=== PATIENT | female | born 1995 | race Caucasian/White ===

== ENCOUNTER 2024-12-16 14:01 | Emergency (ER) | payer SELFPAY ==
[2024-12-16 14:50] VITALS: BP 138/63; BP 172/92; PULSE 120; PULSE 78; RESP 18; TEMP 37.2; O2SAT 97; BMI 23.3
[2024-12-16 14:55] VITALS: BP 138/63; PULSE 78; RESP 18; TEMP 37.2; O2SAT 97
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
[2024-12-16] MEDS: LORazepam 1 MG TABLET 2 MG PO (17:13)
[2024-12-16 17:24] LABS: MANUAL DIFF FLAG NO
[2024-12-16 17:32] LABS: Basophils Absolute Auto 0.1 X10*3/uL (0.0-0.2); Basophils Percent Auto 0.7 % (0-2); Eosinophils Absolute Auto 0.2 X10*3/uL (0.0-0.4); Eosinophils Percent Auto 2.7 % (0-4); Hemoglobin 15.2 g/dl (12.0-16.0); Imm Gran Abs Auto 0.03 X10*3/uL (0.00-0.03); Imm Gran Pct Auto 0.4 % (0.0-0.4); Lymphocytes Absolute Auto 1.1 X10*3/uL (1.2-4.9); Mean Corpuscular HGB Conc 33.8 g/dl (31.0-35.0); Mean Corpuscular Hemoglobin 30.9 pg (27.0-33.0); Mean Corpuscular Volume 91.5 fL (80.0-98.0); Mean Platelet Volume 9.9 fL (9.4-12.3); Monocytes Absolute Auto 0.6 X10*3/uL (0.1-1.2); Monocytes Percent Auto 7.6 % (2-11); Neutrophils Absolute Auto 6.2 x10*3/uL (2.0-8.3); Neutrophils Percent Auto 75.6 % (45-73); Platelet Count 243 X10*3/uL (160-400); Red Blood Count 4.92 X10*6/uL (4.20-5.50); Red Cell Distribution Width 13.1 % (11.0-16.0); White Blood Count 8.2 X10*3/uL (4.8-10.8)
[2024-12-16 17:49] LABS: Alanine Aminotransferase 30 U/L (0-31); Albumin Level 4.5 g/dL (3.5-5.0); Alkaline Phosphatase 75 U/L (39-117); Anion Gap 13 (12-20); Aspartate Amino Transferase 35 U/L (5-31); Bilirubin Total 0.5 mg/dL (0.0-1.0); Blood Urea Nitrogen 12 mg/dL (9-16); Calcium 9.7 mg/dL (8.4-10.2); Carbon Dioxide 26 mmol/L (22-29); Chloride 104 mmol/L (96-108); Estimated Glomerular Filt Rate > 60; Ethanol < 10 mg/dL; Glucose Random 130 mg/dL (60-115); HCG Quantitative < 2 mIU/mL; Potassium 3.4 mmol/L (3.3-5.1); Sodium 140 mmol/L (135-145); Total Protein 7.6 g/dL (6.5-8.0)
[2024-12-16 17:58] LABS: UPreg QC Valid YES; Urine Pregnancy NEGATIVE (NEGATIVE)
--- OUTSIDE RECORDS SUMMARY | 2024-12-16 18:08 | XMS_ITS | Clinical Summary ---
Author Organization [facility] Address [address] [place] [id number] Phone Care Team Providers Care Circular Saw Operator Name Role Phone Unavailable Primary Care Provider Unavailabl e Allergies No known active allergies Medications BANOPHEN 25 MG capsule TAKE 1 CAPSULE BY MOUTH EVERY 6 HOURS NEEDED 0 02/19/2017 Active Vit-Fe Fumarate-FA (PNV PLUS MULTIVITAMIN) 27-1 MG tablet Take 1 tablet by mouth once daily. 6 12/30/2016 Active triamcinolone 0.1 % ointment APPLY A THIN LAYER TO AFFECTED AREAS TWO TIMES DAILY 1 02/19/2017 Active Active Problems Problem Noted Date Diagnosed Date Bipolar I disorder 11/19/2012 Immunizations Immunization Administration Dates Next Due DTP 02/21/1998,1997,1997 DTaP 5 10/26/2002,01/24/1999 HPV, Quadrivalent 05/30/2010,12/12/2009,10/12/19 10 Hep A, Adult 03/03/2017 Hep A, ped/adol 02/19/2017,02/22/2016 Hep B, ped/adol 05/25/1998,1997,1997 Hib (PRP-T) 11/15/1998, 8,1997,10/18 IPV 10/26/2002,1997,1997 Influenza Split 04/15/2013,05/30/2010 Influenza, injectable, quadr ivalent, preservative free 04/12/2015,03/16/2014 Influenza, intranasal, trivalent 08/18/2012 MMR 10/26/2002,11/15/1998 Meningococcal Conj (Menactra) MCV4P 02/22/2016,0 10/11/2009 OPV 01/24/1999 Tdap 10/11/2009 Varicella 09/05/1998 Family History Relation Name Status Comments Daughter Lesa Alive Daughter: Alive and well Other 1 Family history of cancer, Family history of AIDS, Family history of Depression, Family history of Bipolar disorder Other 2 Family history of cancer, Family history of AIDS, Family history of Depression, Family history of Bipolar disorder Social History Tobacco Use Types Packs/Day Years Used Date Smoking Tobacco: Some Days Comments:Current some day sm oker Comments No Sex and Gender Information Value Date Recorded Sex Assigned at Not on file Legal Sex Female 5:10 PM EDT Gender Identity Not on file Sexual Orientation Not on file Last Filed Vital Signs Vital Sign Reading Time Taken Comments Blood Pressure 118/82 03/19/2017 4:26 PM EDT Pulse 102 03/19/2017 4:26 PM EDT Temperature 37.1 ??C (98.8 ??F) 03/19/2017 4:26 PM ED T Respiratory Rate - - Oxygen Saturation - - Inhaled Oxygen Concentration - - Weight 76 kg (167 lb 9.6 oz) 03/19/2017 4:26 PM EDT Height 165.6 cm (5' 5.2 ) 02/22/2016 12:00 AM ED T Body Mass Index 27.72 02/22/2016 12:00 AM EDT Plan of Treatment Health Maintenance Due Date Last Done Comments Varicella Vaccines (2 of 2 - 2-dose childhood series) 09/15/2012 09/05/1998 DTaP,Tdap,and Td Vaccines (7 - Td or Tdap) 10/12/2019 10/11/2009, 10/26/2002, 01/24/1999, Additional history exists Influenza Vaccines (#1) 2024 04/12/20 15, 03/16/2014, 04/15/2013, Additional history exists COVID-19 Vaccine ( season) 2024 Hepatitis B Vaccines Completed 05/25/1998, 1997, 1997 HIB Vaccines Completed 11/15/1998, 02/11, 1997, Additional history exists IPV Vaccines Completed 10/26/2002, 01/11, 1997, Additional history exists MMR Vaccines Completed 10/26/2002, 11/15/1998 HPV Vaccines Completed 05/30/2010, 06/0 07/2009, 10/11/2009 Meningococcal Vaccine Completed 02/22/2016, 010 Hepatitis A Vaccines Completed 03/03/2017, 02/19/2017, 02/22/2016 Men B Vaccine Aged Out No longer elig ible based on patient's age to complete this topic Pneumococcal Vaccine Aged Out No long er eligible based on patient's age to complete this topic Procedures * Due to [place] [employer] law, this organization might not be sharing sensitive test results. Procedure Name Priority Date/Time Associated Diagnosis Comments CHLAMYDIA AND GONORRHEA, AMPLIFIED Routine 03/19/2017 5:15 PM EDT test positive from Last 3 Months or Most Recently Relevant to Health Maintenance Results * Due to [place] [employer] law, this organization might not be sharing sensitive test results. * Chlamydia and Gonorrhea, Amplified (03/19/2017 5:15 PM EDT) Chlamydia Trachomatis, DNA Probe NEGATIVE (NEG) [facility] Comment: No Chlamydia Trachomatis RNA detected in this patient's sample ? (REFERENCE RANGE/NORMAL VALUE: NOT DETECTED) ? URINE GC AMP PROBE NEGATIVE (NEG) [facility] Comment: No Neisseria Gonorrhoeae RNA detected in this patient's sample ? (REFERENCE RANGE/NORMAL VALUE: NOT DETECTED) ? NOTE: This test uses air marshal-mediated amplification method to detect rRNA from C.Trachomatis and N.Gonorrhoeae. A negative result does not preclude infection. In the case of a negative urine result, testing of an endocervical(female) or urethral(male) specimen is recommended if there is high clinical suspicion of infection. Due to very high sensitivity of Nucleic Acid Amplification Test, false positive results may occur. Therefore, specimen handling is extremely important. In patients in whom the disease is unlikely, additional sample for testing should be considered after an initial positive result. The performance characteristics of this test have not been evaluated in children. The Aptima Combo2 assay is not intended for the evaluation of suspected sexual abuse or for other medico-legal indications. The ordering provider should assess if the patient had consensual sex without risk of sexual abuse. Consult the [facility] if needed. Contact phone number . Therapeutic failure or success cannot be determined with the Aptima Combo2 assay since nucleic acid may persist following appropriate antimicrobial therapy. The Centers for Disease Control and Prevention (CDC) recommends confirmatory retesting using culture or a different nucleic acid amplification test when positive results occur, if indicated. Testing performed or reported by [facility], a Service of [facility], [address] [address] CLIA ??[id number] Rafael Taylor MD, PhD, Environmental Construction Engineer Urine 03/19/2017 5:15 PM EDT 03/19/2017 10:10 PM EDT us Tatiana Bustillo NP LAB MICROBIOLOGY - GENERAL ORDER LUIGI Final Result [facility] from Last 3 Months or Most Recently Relevant to Health Maintenance Insurance [facility]
[2024-12-16 18:56] LABS: Amphetamine Screen Urine Not Detected (Not Detect); Barbiturates, Urine Not Detected (Not Detect); Benzodiazepines Screen Urine Not Detected (Not Detect); Buprenorphine Scr Not Detected (Not Detect); Cannabinoid Screen Urine POSITIVE (Not Detect); Cocaine Screen Urine Not Detected (Not Detect); Fentanyl, urine Not Detected (Not Detect); Methadone Screen, Urine Not Detected (Not Detect); Opiate Screen Urine Not Detected (Not Detect); Oxycodone Screen Urine Not Detected (Not Detect); Phencyclidine Screen Urine Not Detected (Not Detect)
[2024-12-16 20:52] VITALS: BP 124/77; PULSE 94; RESP 16; TEMP 37.1; O2SAT 99
[2024-12-16 20:53] VITALS: BP 124/77; PULSE 94; RESP 16; TEMP 37.1; O2SAT 99
== END 2024-12-16 20:53 | disposition home or self-care (01) ==
PROVIDERS: Physician Assistant; Emergency Provider Emergency Medicine Emergency Medical Services
DX: F41.9 Anxiety disorder, unspecified (principal); F33.1 Major depressive disorder, recurrent, moderate; F12.90 Cannabis use, unspecified, uncomplicated; F43.10 Post-traumatic stress disorder, unspecified; R10.2 Pelvic and perineal pain; Z51.81 Encounter for therapeutic drug level monitoring; Z79.899 Other long term (current) drug therapy
CPT/HCPCS: 36415; 80053; 80307; 81025; 84702; 85025; 99284; S9485

== ENCOUNTER 2025-02-10 22:03 | Emergency (ER) | payer OTHER, SELFPAY ==
[2025-02-10 22:09] VITALS: BMI 32.0
[2025-02-10 22:15] VITALS: PULSE 126; O2SAT 96
--- NOTE | 2025-02-10 23:18 | PC.NURSE ---
Pt resting on stretcher with blanket over head. Respirations even and non-labored.
--- NOTE | 2025-02-10 23:52 | PC.NURSE ---
Pt found wandering in hallway. Pt returned to bed and Dr. Pelletier over to assess patient. Dr. Pelletier agreeing to discharge patient. This RN went to go print out discharge paperwork and pt was gone from [facility] again. Pt walked out of department and when asked if she wanted her discharge paperwork, pt did not answer and kept walking out of hospital. Unable to obtain discharge vitals Pt did not sign discharge paperwork.
[2025-02-10 23:59] VITALS: BP 0/0; PULSE 0; RESP 0; TEMP -17.7; TEMP 0; O2SAT 0
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
== END 2025-02-11 02:17 | disposition home or self-care (01) ==
PROVIDERS: Emergency Provider Emergency Medicine
DX: F41.8 Other specified anxiety disorders (principal); F32.A Depression, unspecified; S01.511A Laceration without foreign body of lip, initial encounter; W01.0XXA Fall on same level from slipping, tripping and stumbling without subsequent striking against object, initial encounter; Y93.9 Activity, unspecified; Y92.9 Unspecified place or not applicable; Y99.9 Unspecified external cause status
CPT/HCPCS: 99284

== ENCOUNTER 2025-02-11 17:26 | Inpatient (IN) | payer OTHER, SELFPAY ==
[2025-02-11 17:35] VITALS: BP 136/84; PULSE 78; O2SAT 97
[2025-02-11 17:40] VITALS: BP 144/101; PULSE 79; RESP 16; TEMP 36.7; O2SAT 99; BMI 25.0
--- NOTE | 2025-02-11 17:43 | PC.NURSE ---
Patient endorsing SI to EMT, confirmed by t/w during triage assessment. owner consulting engineer Claire made aware, patient changed over by EDT Betty, walked over to POD. Call made to POD ISSA Zacarias for report.
--- NOTE | 2025-02-11 18:08 | PC.NURSE ---
Patient is a 29 yo female who comes to the emergency room via ambulance from home. According to the patient, earlier today she had a disagreement, patient states that she tripped on the floor in the bathroom in has a small laceration to the upper lip. Patient states that she is supposed to be taking buspar for depression but she is non compliant for the past 2-3 months. Admits to feeling hopeless, depressed and like cutting History of self harm. I keep fucking things up and I just was to feel happy. Endorses insomnia and poor appetite. However, patient denies SI or HI. Patient changed into psych safe clothing. Belongings removed and secured prior to arrival in the pod.
[2025-02-11 18:27] LABS: MANUAL DIFF FLAG NO
[2025-02-11 18:28] LABS: Hematocrit 38.6 % (37.0-47.0); Hemoglobin 13.2 g/dl (12.0-16.0); Imm Gran Abs Auto 0.06 X10*3/uL (0.00-0.03); Imm Gran Pct Auto 0.5 % (0.0-0.4); Lymphocytes Absolute Auto 1.5 X10*3/uL (1.2-4.9); Mean Corpuscular HGB Conc 34.2 g/dl (31.0-35.0); Mean Corpuscular Hemoglobin 30.9 pg (27.0-33.0); Mean Corpuscular Volume 90.4 fL (80.0-98.0); NRBC Abs Auto 0.000 X10*3/uL (0.0-0.012); NRBC Pct Auto 0.0 /100WBC (0.0-0.2); Platelet Count 262 X10*3/uL (160-400); Red Blood Count 4.27 X10*6/uL (4.20-5.50); White Blood Count 12.7 X10*3/uL (4.8-10.8)
[2025-02-11 18:30] LABS: Appearance Urine Clear; Glucose Urine UA Negative (Negative); PH 6.0 (5.0-9.0); Specific Gravity - Urine 1.020 (1.005-1.025); UMIC TRIGGER UA YES
--- NOTE | 2025-02-11 18:32 | ED.PSYCH ---
HPI - Psych General Chief Complaint: Psychiatric Symptoms Stated Complaint: ANXIETY Time Seen by Provider: 02/11/25 18:10 Source: patient Mode of arrival: ambulatory Limitations: no limitations History of Present Illness ED Provider: Cee Edmondson NP HPI Narrative: Patient is a 29-year-old female past medical history of anxiety and depression who presents emergency department for evaluation having increasing stressors at home, increasing anxiety, suicidal ideations with a plan to cut herself. No recent attempts of suicide reported. Denying any homicidal ideations. She admits to increased alcohol usage, states she is drinking sometimes twice weekly but when she does it is excessive. No history of alcohol withdrawal nor seizures. Denies recreational drug usage. No hallucinations. She states that she moved to the area from [place] 2 years ago. She had a therapist through [facility] that she was talking due for a few months but does not have a psychiatrist/med prescriber locally. States that approximately 2 and half months ago her buspirone was abruptly discontinued/no longer refilled, and she ran out of her Zoloft yesterday. Related Data Home Medications ?Medication ?Instructions ?Recorded ?Confirmed No Known Home Meds 02/11/25 02/11/25 Allergies Allergy/AdvReac Type Severity Reaction Status Date / Time No Known Allergies Allergy Verified 02/11/25 17:41 Review of Systems Review of Systems: Yes all other systems are reviewed and are negative PMFSH Past Medical History Attestation statement: The following information was validated with the patient. Source: old records reviewed Medical History (Updated 02/16/25 @ 13:30 by Rusty Menchaca MD) MDD (major depressive disorder), recurrent severe, without psychosis PTSD (post-traumatic stress disorder) Social History Social History Household Members: Spouse and Children Housing: House Do you presently have visiting nurse or other home services: No Alcohol intake: current Patient Tobacco Use Status: Never used Tobacco Smoked in Last 30 Days: No e-Cigarette/Vaping Use: Never Used Patient Interested in Nicotine Replacement: No Patient Given Instructions on How to Stop Smoking: No Second Hand Smoke Exposure: No Substance Use Type: Marijuana Currently Displaying Signs/Symptoms of Drug Intoxication Withdrawal: No Have you been hit, kicked, punched, or otherwise hurt by someone within the past year? If so, by whom?: No Do you feel safe in your current relationship?: Yes Is there a partner from a previous relationship who is making you feel unsafe now?: No Are you made to feel afraid or neglected: No Spiritual Healthcare Practices: None Denominational Healthcare Practices: Sikh Cultural Healthcare Practices: None Advance Directives: No Advance Directives Information Provided: No Do you have thoughts of harming others: None Do you have a plan to hurt others: No Plan Recently lost weight without trying: No Nutrition Risks: No Nutritional Risk Patient : No : No Poor oral hygiene: No service: No Sexual orientation: Straight/Heterosexual Physical Exam Vital Signs: Vital Signs: Last Vital Signs Temp 97.6 F 02/16/25 08:00 Pulse 63 02/16/25 08:00 Resp 16 02/16/25 08:00 BP 138/75 02/16/25 10:40 Pulse Ox 100 02/15/25 19:53 O2 Del Method Room Air 02/15/25 19:53 BMI result Body Mass Index 25.0 Appearance: Alert.?Oriented to person, place and time. No acute distress.?Normal affect. Eyes: Pupils equal, round and reactive to light.? ENT: Pharynx normal.?? Neck: Normal inspection.? Neck supple.?? CVS: Heart sounds normal. Normal heart rate and rhythm.? Pulses normal.?? Respiratory: No respiratory distress.? Lung sounds clear to auscultation bilaterally?? Abdomen: Soft and non-tender. Normoactive bowel sounds. Skin: Skin warm and dry.? Normal skin color.? Extremities: No lower extremity edema.? Neuro: Moves all extremities spontaneously. Sensation intact bilaterally. CN II-XII intact. No focal neuro deficits. Ambulates with normal steady gait. Course Reevaluation(s) Reevaluation #1: CBC revealing mild leukocytosis of 12,700 perhaps reactive in nature as she has no infectious symptoms, no anemia or thrombocytopenia. Mild hypokalemia 3.0 burning that she has not been taking in much oral intake past few days, patient to be repleted with potassium chloride 40 mEq orally she denies having any recent diarrhea or vomiting no abdominal pain nausea or vomiting. No evidence of ALEAH. LFTs unremarkable. Urinalysis with trace leukocyte esterase 2+ urine bacteria in addition to squamous epithelial cells asymptomatic of urinary tract infection, would not consider treatment at this time pending urine culture. Reevaluation #2: Patient is requesting something anxiety, will order Valium Time: 20:33 Medications Administered Generic Name Dose Route Start Last Admin Trade Name Olga PRN Reason Stop Dose Admin Acetaminophen 650 mg 02/12/25 17:18 02/16/25 08:53 Acetaminophen 325 Mg Tablet PO 650 mg Q6H PRN Administration Headache/Pain, Scale 1-10 Benzocaine 1 appl 02/13/25 13:38 02/13/25 13:48 Benzocaine 20 % Oral Gel 9 Gm Tube MUCOUS MEM 1 appl QID PRN Administration Pain, Mild (Pain Scale 1-3) Protocol Clonidine HCl 0.1 mg 02/14/25 11:35 02/16/25 10:40 Clonidine Hcl 0.1 Mg Tablet PO 0.1 mg Q4H PRN Administration moderate anxiety Protocol Clonidine HCl 0.1 mg 02/15/25 21:00 02/15/25 21:03 Clonidine Hcl 0.1 Mg Tablet PO 0.1 mg BEDTIME SAM Administration Protocol Guanfacine HCl 1 mg 02/15/25 09:00 02/16/25 08:43 Guanfacine Hcl Er 1 Mg Tab.Er.24h PO 1 mg DAILY SAM Administration Hydroxyzine HCl 25 mg 02/12/25 17:18 02/16/25 08:53 Hydroxyzine Hcl 25 Mg Tablet PO 25 mg Q6H PRN Administration mild anxiety Ibuprofen 600 mg 02/15/25 13:32 02/16/25 13:56 Ibuprofen 600 Mg Tablet PO 600 mg Q8H PRN Administration tooth pain Lamotrigine 25 mg 02/13/25 12:05 02/16/25 08:42 Lamotrigine 25 Mg Tablet PO 25 mg DAILY SAM Administration Quetiapine Fumarate 50 mg 02/15/25 14:07 02/15/25 22:09 Quetiapine Fumarate 50 Mg Tablet PO 50 mg BEDTIME MRX1 PRN Administration for CONTINUED insomnia Trazodone HCl 100 mg 02/15/25 21:00 02/15/25 21:03 Trazodone Hcl 100 Mg Tablet PO 100 mg BEDTIME SAM Administration Venlafaxine HCl 75 mg 02/16/25 09:00 02/16/25 08:42 Venlafaxine Hcl Er 75 Mg Cap.Er.24h PO 75 mg DAILY SAM Administration Discontinued Medications Generic Name Dose Route Start Last Admin Trade Name Olga PRN Reason Stop Dose Admin Acetaminophen 975 mg 02/12/25 15:05 02/12/25 15:43 Acetaminophen 325 Mg Tablet PO 02/12/25 15:06 975 mg ONCE ONE Administration Diazepam 4 mg 02/11/25 20:34 02/11/25 20:44 Diazepam 2 Mg Tablet PO 02/11/25 20:35 4 mg ONCE ONE Administration Guanfacine HCl 1 mg 02/14/25 13:20 02/14/25 13:53 Guanfacine Hcl Er 1 Mg Tab.Er.24h PO 02/14/25 13:21 1 mg ONCE ONE Administration Hydroxyzine HCl 50 mg 02/11/25 22:39 02/11/25 22:42 Hydroxyzine Hcl 50 Mg Tablet PO 02/11/25 22:40 50 mg ONCE ONE Administration Ibuprofen 400 mg 02/12/25 08:34 02/12/25 08:37 Ibuprofen 400 Mg Tablet PO 02/12/25 08:35 400 mg ONCE ONE Administration Lorazepam 0.5 mg 02/12/25 08:20 02/12/25 08:38 Lorazepam 0.5 Mg Tablet PO 02/12/25 08:21 0.5 mg ONCE ONE Administration Lorazepam 0.5 mg 02/12/25 14:49 02/12/25 14:59 Lorazepam 0.5 Mg Tablet PO 02/12/25 14:50 0.5 mg ONCE ONE Administration Potassium Chloride 40 meq 02/11/25 19:06 02/11/25 20:47 Potassium Chloride Packet 20 Meq Packet PO 02/11/25 19:07 40 meq ONCE ONE Administration Quetiapine Fumarate 50 mg 02/13/25 21:00 02/14/25 21:30 Quetiapine Fumarate 50 Mg Tablet PO 50 mg BEDTIME MRX1 SAM Administration Quetiapine Fumarate 12.5 mg 02/13/25 15:00 02/14/25 09:28 Quetiapine Fumarate 25 Mg Tablet PO 12.5 mg TID PRN Administration anxiety Trazodone HCl 50 mg 02/12/25 17:18 02/14/25 21:30 Trazodone Hcl 50 Mg Tablet PO 50 mg BEDTIME MRX1 PRN Administration Insomnia Venlafaxine HCl 37.5 mg 02/14/25 13:13 02/14/25 13:53 Venlafaxine Hcl Er 37.5 Mg Cap.Er.24h PO 02/14/25 13:14 37.5 mg ONCE ONE Administration Venlafaxine HCl 37.5 mg 02/15/25 09:00 02/15/25 08:58 Venlafaxine Hcl Er 37.5 Mg Cap.Er.24h PO 37.5 mg DAILY SAM Administration Medical Decision Making Medical Decision Making [facility] Narrative: Patient is a 29-year-old female past medical history of anxiety depression presenting for evaluation of suicidal ideations with a plan no attempt as per HPI. She offers no physical complaints at this time. Her examination is benign. Plan to obtain serum labs for medical clearance and further care team for assistance with disposition planning. Differential Diagnosis Differential Diagnoses: The differential diagnosis associated with the presentation includes (See narrative above and below for further detail) Admission/Observation Consideration of admission/observation: Escalation of care including admission/observation considered Patient is being observed in the Emergency Department for depression , suicidal ideations, and anxiety. Observation time was started at 18:39 on 02/11/2025.?The patient is currently stable and non-toxic appearing. Observation is being initiated in the Emergency Department to allow time to help differentiate if the patient's depression, suicidal ideations, and anxiety is due to Substance Induced Mood Disorder and Anxiety versus Major Depressive Disorder, Bipolar Marlene, Bipolar Depression, and Schizophrenia. The patient will receive frequent psychiatric assessments from the provider as well as from nursing staff. The patient will also be monitored for the need of PRN agitation medications such as Haldol, Ativan, and Benadryl. Consult Healthcare Provider Management of the patient was discussed with: Behavioral Health Provider (CARE team) Lab Data [facility] Lab Attestation statement: I reviewed the patient's lab results. (See course narrative) 02/13/25 07:57 02/13/25 07:57 Labs: Lab Results 02/11/25 02/11/25 Range/Units 18:16 18:20 WBC 12.7 H (4.8-10.8) X10*3/uL RBC 4.27 (4.20-5.50) X10*6/uL Hgb 13.2 (12.0-16.0) g/dl Hct 38.6 (37.0-47.0) % MCV 90.4 (80.0-98.0) fL MCH 30.9 (27.0-33.0) pg MCHC 34.2 (31.0-35.0) g/dl RDW 14.2 (11.0-16.0) % Plt Count 262 (160-400) X10*3/uL MPV 9.6 (9.4-12.3) fL Immature Gran % (Auto) 0.5 H (0.0-0.4) % Neut % (Auto) 81.6 H (45-73) % Lymph % (Auto) 11.7 L (20-40) % [place] % (Auto) 5.1 (2-11) % Eos % (Auto) 0.5 (0-4) % Baso % (Auto) 0.6 (0-2) % Lymph # (Auto) 1.5 (1.2-4.9) X10*3/uL [place] # (Auto) 0.7 (0.1-1.2) X10*3/uL Eos # (Auto) 0.1 (0.0-0.4) X10*3/uL Baso # (Auto) 0.1 (0.0-0.2) X10*3/uL Abs Immat Gran (auto) 0.06 H (0.00-0.03) X10*3/uL Absolute Neuts (auto) 10.4 H (2.0-8.3) x10*3/uL Absolute Nucleated RBC 0.000 (0.0-0.012) X10*3/uL Nucleated RBC % (auto) 0.0 (0.0-0.2) /100WBC Sodium 141 (135-145) mmol/L Potassium 3.0 L (3.3-5.1) mmol/L Chloride 105 (96-108) mmol/L Carbon Dioxide 27 (22-29) mmol/L Anion Gap 12 (12-20) BUN 10 (9-16) mg/dL Creatinine 0.85 (0.5-1.4) mg/dL Estim Creat Clear Calc 89.4 Estimated GFR > 60 Random Glucose 106 (60-115) mg/dL Calcium 9.1 D (8.4-10.2) mg/dL Total Bilirubin 0.5 (0.0-1.0) mg/dL AST 23 (5-31) U/L ALT 13 (0-31) U/L Alkaline Phosphatase 80 (39-117) U/L Total Protein 6.9 (6.5-8.0) g/dL Albumin 4.1 (3.5-5.0) g/dL Urine Color Yellow Urine Appearance Clear Urine pH 6.0 (5.0-9.0) Ur Specific [place] 1.020 (1.005-1.025) Urine Protein Trace (Neg-Trace) mg/dL Urine Glucose (UA) Negative (Negative) mg/dL Urine Ketones 15 (Negative) mg/dL Urine Blood Negative (Negative) Urine Nitrite Negative (Negative) Ur Leukocyte Esterase Trace H (Negative) Urine RBC 0-2 (0-2) /HPF Urine WBC 0-5 (0-5) /HPF Ur Squamous Epith Cells 11-20 (0-2) /HPF Urine Bacteria 2+ (None Seen) Hyaline Casts 0-2 (0-2) /LPF Salicylates < 5.0 L (15-30) mg/dL Urine Opiates Screen Not Detected (Not Detect) Ur Buprenorphine Scrn Not Detected (Not Detect) ng/mL Ur Oxycodone Screen Not Detected (Not Detect) ng/mL Urine Methadone Screen Not Detected (Not Detect) ng/mL Urine Fentanyl Screen Not Detected (Not Detect) Acetaminophen < 3 (<30) mcg/mL Ur Barbiturates Screen Not Detected (Not Detect) Ur Phencyclidine Scrn Not Detected (Not Detect) Ur Amphetamines Screen Not Detected (Not Detect) U Benzodiazepines Scrn Not Detected (Not Detect) Urine Cocaine Screen Not Detected (Not Detect) U Marijuana (THC) Screen POSITIVE H (Not Detect) Ethyl Alcohol < 10 mg/dL External Record Review External record reviewed: Outpatient record Chronic Conditions Patient?s care impacted by: Other (See narrative above) Discharge Plan Discharge Clinical Impression: Acute anxiety, Suicidal ideation Patient Disposition: Admitted As Inpatient Interventions: Admission Worksheet (ED) Last Done: 02/12/25 18:15 Discharge Date/Time: 02/12/25 18:18
[2025-02-11 18:41] LABS: Cannabinoid Screen Urine POSITIVE (Not Detect)
[2025-02-11 18:55] LABS: Alanine Aminotransferase 13 U/L (0-31); Albumin Level 4.1 g/dL (3.5-5.0); Alkaline Phosphatase 80 U/L (39-117); Anion Gap 12 (12-20); Aspartate Amino Transferase 23 U/L (5-31); Blood Urea Nitrogen 10 mg/dL (9-16); Calcium 9.1 mg/dL (8.4-10.2); Carbon Dioxide 27 mmol/L (22-29); Chloride 105 mmol/L (96-108); Creatinine Clr Calc Pharmacy 89.4; Estimated Glomerular Filt Rate > 60; Potassium 3.0 mmol/L (3.3-5.1); Sodium 141 mmol/L (135-145); Total Protein 6.9 g/dL (6.5-8.0)
[2025-02-11 19:38] LABS: Acetaminophen LAB < 3 mcg/mL (<30); Salicylate < 5.0 mg/dL (15-30)
--- NOTE | 2025-02-11 19:57 | PC.NURSE ---
Assumed care of patient at 1845, patient appears to be in no apparent distress, sleeping, respirations even and unlabored. Continue plan of care for CARE team assessment
[2025-02-11] MEDS: Potassium Chloride Packet 20 MEQ PACKET 40 MEQ PO (20:47)
--- NOTE | 2025-02-12 00:57 | PC.NURSE ---
Took over care from ISSA Cardona at 23:00, pt sleeping no sign of distress.
--- NOTE | 2025-02-12 06:14 | PC.NURSE ---
pt sleeping at this time.
[2025-02-12 06:17] VITALS: BP 127/81; PULSE 87; TEMP 37; O2SAT 99
--- NOTE | 2025-02-12 08:06 | PC.NURSE ---
This RN assumed care of patient @ 0700. Patient was seen by CARE team, recommendation for inpatient. Patient requested medication for her anxiety. Notified Provider.
--- NOTE | 2025-02-12 08:54 | PC.NURSE ---
Patient c/o facial pain, rated 10/10 denies injury. no swelling noted. Notified provider received order for ibuprofen. Administered medication per MAR effectiveness pending.
--- NOTE | 2025-02-12 13:04 | PHA.MEDREC ---
Addendum entered by Mariela Ng RPh 02/12/25 13:10: reviewed by [facility]. Original Note: Pharmacy Consult ? Medication Reconciliation Reviewed med rec done by nursing.
[2025-02-12 14:23] VITALS: BP 138/87; PULSE 78; RESP 15; TEMP 36.9; O2SAT 99
--- NOTE | 2025-02-12 15:43 | PC.NURSE ---
Patient c/o facial pain, notified provider. Received new order for tylenol, administered per SEP, effectiveness pending
[2025-02-12 18:04] LABS: UPreg QC Valid YES
[2025-02-12 18:12] LABS: Cannabinoid Screen Urine POSITIVE (Not Detect)
[2025-02-12 18:30] VITALS: BP 155/96; PULSE 81; RESP 17; TEMP 36.1; O2SAT 97
[2025-02-12 19:07] VITALS: BMI 32.8
--- NOTE | 2025-02-12 19:07 | PC.ADMIT ---
Patient is a 29-year-old female who is admitted to on a conditional voluntary basis after being seen in the ED for suicidal ideation, depression, and anxiety. Patient reports that she feels hopeless and useless which is causing her to have relationship trouble. The only good thing I have going for me is my children, I have no friends . She reports a lot of forgetfulness around the house which upsets her and compounds her feelings of inadequacy. She reports that she was admitted psychiatrically at the age of 15 when she found out she was adopted after being lied to for years, denies other admissions. She reports that she has been drinking twice a week 3 to 4 drinks at a time which she feels is heavy and is enough to get her intoxicated. She denies current SI but has had intermittent passive SI over the past two months but states that it never reached a point of plan or intent. She reports that she is severely depressed everyday and reports anxiety daily which culminates in anxiety attacks which have gotten worse since she ran out of Buspar months ago. Additionally, patient is concerned about getting FMLA paperwork for her from the provider as he has to be off work to be home with the children while she is admitted.
[2025-02-13 08:00] VITALS: BP 120/75; PULSE 76; RESP 16; TEMP 36.3; O2SAT 99
[2025-02-13 08:07] LABS: Hematocrit 41.8 % (37.0-47.0); Hemoglobin 14.0 g/dl (12.0-16.0); Imm Gran Abs Auto 0.04 X10*3/uL (0.00-0.03); Imm Gran Pct Auto 0.4 % (0.0-0.4); Lymphocytes Absolute Auto 2.9 X10*3/uL (1.2-4.9); MANUAL DIFF FLAG NO; Mean Corpuscular HGB Conc 33.5 g/dl (31.0-35.0); Mean Corpuscular Hemoglobin 30.2 pg (27.0-33.0); Mean Corpuscular Volume 90.1 fL (80.0-98.0); NRBC Abs Auto 0.000 X10*3/uL (0.0-0.012); NRBC Pct Auto 0.0 /100WBC (0.0-0.2); Platelet Count 289 X10*3/uL (160-400); Red Blood Count 4.64 X10*6/uL (4.20-5.50); White Blood Count 9.2 X10*3/uL (4.8-10.8)
[2025-02-13 08:58] LABS: Hemoglobin A1C 103.5148 umol/L; Total Hemoglobin (HGBA1C) 3680.1748 umol/L
[2025-02-13 09:02] LABS: Alanine Aminotransferase 12 U/L (0-31); Albumin Level 4.0 g/dL (3.5-5.0); Alkaline Phosphatase 73 U/L (39-117); Anion Gap 13 (12-20); Aspartate Amino Transferase 18 U/L (5-31); Blood Urea Nitrogen 9 mg/dL (9-16); Calcium 9.1 mg/dL (8.4-10.2); Carbon Dioxide 28 mmol/L (22-29); Chloride 105 mmol/L (96-108); Cholesterol 139 mg/dL (<200); Creatinine Clr Calc Pharmacy 113.8; Estimated Glomerular Filt Rate > 60; HDL Cholesterol 45 mg/dL (>40); Potassium 3.7 mmol/L (3.3-5.1); Sodium 142 mmol/L (135-145); Total Protein 6.9 g/dL (6.5-8.0); Triglycerides 83 mg/dL (<150)
--- NOTE | 2025-02-13 12:01 | P.HPPS_ITS ---
HPI Date of Service: 02/13/25 Chief Complaint: ANXIETY Sources of Information: patient interviewed, chart reviewed and crisis/core team assessment reviewed HPI Subjective Notes: Conditional Voluntary Healthcare Proxy: No Guardianship: No Medical Problems Affecting Mental Status: No Narrative: 29 yo with 3 kids living with abran reports decline over last 2 1/2 months off buspar and sertraline- rxs had been sent by pcp in [place] moved here 2 years ago - has had therapist at [facility] but despite requests never got connected with prescriber- [facility] patient was stressed about having to be at 100% when she was only at 25% Kids are with her fimilind who is father of youngest child- Pt reports has not gotten sleep - though trazodone last pm here was helfpul- Has not been sleeping well, decreased energy, dec apt, no weight loss, decreased in interests except her kids- no si plan but thoughts of cutting that patient hasn't done in a decade- Feelings of guilt- , frequent panic attacks- Also inc drinking binge 4-5 drinks 2 x week- no hx withdrawal - Past Psychiatric History: hx suicide attempt at 15 yo hosp at [place] - hx of seroquel until got 14 years ago with first child- after son 3 years ago was started on sertraline post and then buspar added Medical Evaluation Reviewed: Yes PMFSH Family History: adoptive family not close and also biofamily all crazy =no family hx known for suicide completion or bipolar/hospitalizations Social History: lives with abran, home schools 3 kids- 11 yo, 7 and 3 yo [facility] [employer]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 of more than developmental - (more was not discussed today) co of depersonalization watching everything from a distance Diagnostics Vital Signs (24Hr): Vital Signs - 24 hr 02/12/25 14:23 02/12/25 18:30 02/13/25 08:00 Temperature 98.5 F 97.0 F 97.4 F Pulse Rate 78 81 76 Respiratory Rate 15 17 16 Blood Pressure 138/87 155/96 H 120/75 Pulse Oximetry 99 97 99 Oxygen Delivery Method Room Air Room Air Room Air BMI result Body Mass Index 32.8 Labs 02/13/25 07:57 02/13/25 07:57 Labs: Laboratory Results - last 48 hr 02/11/25 02/11/25 02/12/25 18:16 18:20 17:53 WBC 12.7 H RBC 4.27 Hgb 13.2 Hct 38.6 MCV 90.4 MCH 30.9 MCHC 34.2 RDW 14.2 Plt Count 262 MPV 9.6 Immature Gran % (Auto) 0.5 H Neut % (Auto) 81.6 H Lymph % (Auto) 11.7 L [place] % (Auto) 5.1 Eos % (Auto) 0.5 Baso % (Auto) 0.6 Lymph # (Auto) 1.5 [place] # (Auto) 0.7 Eos # (Auto) 0.1 Baso # (Auto) 0.1 Abs Immat Gran (auto) 0.06 H Absolute Neuts (auto) 10.4 H Absolute Nucleated RBC 0.000 Nucleated RBC % (auto) 0.0 Sodium 141 Potassium 3.0 L Chloride 105 Carbon Dioxide 27 Anion Gap 12 BUN 10 Creatinine 0.85 Estim Creat Clear Calc 89.4 Estimated GFR > 60 Random Glucose 106 Estimat Average Glucose Hemoglobin A1c % Calcium 9.1 D Total Bilirubin 0.5 AST 23 ALT 13 Alkaline Phosphatase 80 Total Protein 6.9 Albumin 4.1 Triglycerides Cholesterol LDL Cholesterol, Calc HDL Cholesterol Urine Color Yellow Urine Appearance Clear Urine pH 6.0 Ur Specific [place] 1.020 Urine Protein Trace Urine Glucose (UA) Negative Urine Ketones 15 Urine Blood Negative Urine Nitrite Negative Ur Leukocyte Esterase Trace H Urine RBC 0-2 Urine WBC 0-5 Ur Squamous Epith Cells 11-20 Urine Bacteria 2+ Hyaline Casts 0-2 Urine Test NEGATIVE Salicylates < 5.0 L Urine Opiates Screen Not Detected Not Detected Ur Buprenorphine Scrn Not Detected Not Detected Ur Oxycodone Screen Not Detected Not Detected Urine Methadone Screen Not Detected Not Detected Urine Fentanyl Screen Not Detected Not Detected Acetaminophen < 3 Ur Barbiturates Screen Not Detected Not Detected Ur Phencyclidine Scrn Not Detected Not Detected Ur Amphetamines Screen Not Detected Not Detected U Benzodiazepines Scrn Not Detected Not Detected Urine Cocaine Screen Not Detected Not Detected U Marijuana (THC) Screen POSITIVE H POSITIVE H Ethyl Alcohol < 10 02/13/25 07:57 WBC 9.2 RBC 4.64 Hgb 14.0 Hct 41.8 MCV 90.1 MCH 30.2 MCHC 33.5 RDW 14.5 Plt Count 289 MPV 9.7 Immature Gran % (Auto) 0.4 Neut % (Auto) 55.7 Lymph % (Auto) 31.7 [place] % (Auto) 7.2 Eos % (Auto) 4.2 H Baso % (Auto) 0.8 Lymph # (Auto) 2.9 [place] # (Auto) 0.7 Eos # (Auto) 0.4 Baso # (Auto) 0.1 Abs Immat Gran (auto) 0.04 H Absolute Neuts (auto) 5.1 Absolute Nucleated RBC 0.000 Nucleated RBC % (auto) 0.0 Sodium 142 Potassium 3.7 D Chloride 105 Carbon Dioxide 28 Anion Gap 13 BUN 9 Creatinine 0.82 Estim Creat Clear Calc 113.8 Estimated GFR > 60 Random Glucose 87 Estimat Average Glucose 88 Hemoglobin A1c % 4.7 Calcium 9.1 Total Bilirubin 0.5 AST 18 ALT 12 Alkaline Phosphatase 73 Total Protein 6.9 Albumin 4.0 Triglycerides 83 Cholesterol 139 LDL Cholesterol, Calc 78 HDL Cholesterol 45 Urine Color Urine Appearance Urine pH Ur Specific [place] Urine Protein Urine Glucose (UA) Urine Ketones Urine Blood Urine Nitrite Ur Leukocyte Esterase Urine RBC Urine WBC Ur Squamous Epith Cells Urine Bacteria Hyaline Casts Urine Test Salicylates Urine Opiates Screen Ur Buprenorphine Scrn Ur Oxycodone Screen Urine Methadone Screen Urine Fentanyl Screen Acetaminophen Ur Barbiturates Screen Ur Phencyclidine Scrn Ur Amphetamines Screen U Benzodiazepines Scrn Urine Cocaine Screen U Marijuana (THC) Screen Ethyl Alcohol Meds/Allergies Meds Home Medications ?Medication ?Instructions ?Recorded ?Confirmed ?Type No Known Home Meds 02/11/25 02/11/25 Hi story Allergies Allergies Allergy/AdvReac Type Severity Reaction Status Date / Time No Known Allergies Allergy Verified 02/11/25 17:41 Mental Status Exam Mental Status Exam Narrative: lyihalvarez in bed talks to me with face 1/2 in pillow- Patient Appearance: Unkempt Patient Orientation: Person, Place, Time and Situation Level of Consciousness: Awake Patient Behavior: Appropriate, Cooperative and Good Eye Contact Mood Description: Calm Affect Description: Appropriate Patient Cognition Impaired: No Ability to Follow Directions: Good Speech Pattern: Clear Hallucinations: None Delusions: Not Present Perceptual Disturbances: Depersonalization Thought Process: Intact and Goal Oriented Thought Content: positive for Suicidal Ideation (more thoughts of self injury then si) Depressive Symptoms: Increased Anxiety, Muscle Tension, Difficulty Sleeping, Loss of Int. in Activity, Feelings of Guilt and Loss of Energy Judgement: Fair Assessment & Plan Assessment & Plan (1) Bipolar 2 disorder, major depressive episode: Status: Acute Code(s): F31.81 - Bipolar II disorder (2) Panic attack: Status: Acute Code(s): F41.0 - Panic disorder [episodic paroxysmal anxiety] (3) Alcohol abuse: Status: Acute Code(s): F10.10 - Alcohol abuse, uncomplicated Assessment and Plan: not likely risk withdrawal or need for ciwa with 2 x wk drinking Plan 8.3 Admit, discussed different antidep trial vs lamotrigine and quetiapine= pt definitely wants to go on seroquel, did warn patient about rash issue with lamotrigine so she is a bit hesitant about that- prn of hydroxyzine for anxiety and also low dose quetiapine for anxiety as well Patient educated on: diagnosis (?bipolar 2 depressed), medication risk/benefits and substance abuse Informed Consent: understands Reason for continued inpatient stay Substantial Risk for: harm to self and rapid decompensation Statement Statement: I have reviewed the history and physical and performed a pertinent examination on my patient. No changes have occurred unless specified. If the History and Physical was not performed prior to admission, the Hospitalist's service will be consulted for completing the admission physical. Time Spent With Patient Time: Total time managing care of this patient today ____ minutes.
[2025-02-13] MEDS: Benzocaine 20 % Oral Gel 9 GM TUBE 1 APPL MUCOUS MEM (13:48)
[2025-02-13 20:00] VITALS: BP 146/68; PULSE 78; TEMP 36; O2SAT 99
[2025-02-14 08:00] VITALS: BP 116/74; PULSE 73; RESP 18; TEMP 36.1; O2SAT 98
--- NOTE | 2025-02-14 09:44 | HO.PSYCHPN ---
Subjective Subjective Date of Service: 02/14/25 Reason For Visit: ANXIETY Interim History: met with patient; discussed with team; reviewed chart pt reports overall feeling much better; denies any SI and says mood is better. reviewed hx in detail and pt denies any hx of actual manic episodes; rather what she describes is moments of emotional reactivity that typical resolve in an hour and always within a day; she says she got bipolar dx when she was 15 yo (during which time home life was chaotic). discussed trauma hx discussed medication options and after reviewing risks/side-effects she agrees to start Venlafaxine for depression/anxiety/ptsd and to start intunive for ADHD symptoms; she agrees to continue lamictal venlafaxine ER 37.5mg Intunive 1mg daily continue lamictal Mental Status Exam Mental Status Exam Narrative: Pt is alert and oriented; behavior is cooperative, friendly and calm; patient is not in distress; dressed in casual attire with unkempt hair and cloths but adequate hygiene; mood is described as better and affect congruent; eye contact appropriate; Speech is normal rate, volume and prosody and not pressured; no psychomotor agitation/retardation present; thought process is organized and goal directed; Thought content is on tx; otherwise pertinent to relevant topics and without any delusional content, paranoid ideations or grandiosity; denies any SI/HI. Denies AVH and there is no evidence of perceptual disturbance. Patients insight and judgment appear intact. Diagnostics Vital Signs (24Hr): Vital Signs - 24 hr 02/13/25 20:00 02/14/25 08:00 Temperature 96.8 F 97 F Pulse Rate 78 73 Respiratory Rate 18 Blood Pressure 146/68 H 116/74 Pulse Oximetry 99 98 Oxygen Delivery Method Room Air Room Air BMI result Body Mass Index 32.8 Labs 02/13/25 07:57 02/13/25 07:57 Labs: Laboratory Results - last 48 hr 02/12/25 02/13/25 17:53 07:57 WBC 9.2 RBC 4.64 Hgb 14.0 Hct 41.8 MCV 90.1 MCH 30.2 MCHC 33.5 RDW 14.5 Plt Count 289 MPV 9.7 Immature Gran % (Auto) 0.4 Neut % (Auto) 55.7 Lymph % (Auto) 31.7 [place] % (Auto) 7.2 Eos % (Auto) 4.2 H Baso % (Auto) 0.8 Lymph # (Auto) 2.9 [place] # (Auto) 0.7 Eos # (Auto) 0.4 Baso # (Auto) 0.1 Abs Immat Gran (auto) 0.04 H Absolute Neuts (auto) 5.1 Absolute Nucleated RBC 0.000 Nucleated RBC % (auto) 0.0 Sodium 142 Potassium 3.7 D Chloride 105 Carbon Dioxide 28 Anion Gap 13 BUN 9 Creatinine 0.82 Estim Creat Clear Calc 113.8 Estimated GFR > 60 Random Glucose 87 Estimat Average Glucose 88 Hemoglobin A1c % 4.7 Calcium 9.1 Total Bilirubin 0.5 AST 18 ALT 12 Alkaline Phosphatase 73 Total Protein 6.9 Albumin 4.0 Triglycerides 83 Cholesterol 139 LDL Cholesterol, Calc 78 HDL Cholesterol 45 Urine Test NEGATIVE Urine Opiates Screen Not Detected Ur Buprenorphine Scrn Not Detected Ur Oxycodone Screen Not Detected Urine Methadone Screen Not Detected Urine Fentanyl Screen Not Detected Ur Barbiturates Screen Not Detected Ur Phencyclidine Scrn Not Detected Ur Amphetamines Screen Not Detected U Benzodiazepines Scrn Not Detected Urine Cocaine Screen Not Detected U Marijuana (THC) Screen POSITIVE H Medications Medications Current Medications Acetaminophen (Acetaminophen 325 Mg Tablet) 650 mg PO Q6H PRN PRN Reason: Headache/Pain, Scale 1-10 Last Admin: 02/13/25 08:44 Dose: 650 mg Al Hydroxide/Mg Hydroxide (Magnesium Hydrox/Alum Hydrox 30 Ml Oral.Susp) 30 ml PO Q6H PRN PRN Reason: Heartburn/Nausea Benzocaine (Benzocaine 20 % Oral Gel 9 Gm Tube) 1 appl MUCOUS MEM QID PRN; Protocol PRN Reason: Pain, Mild (Pain Scale 1-3) Last Admin: 02/13/25 13:48 Dose: 1 appl Hydroxyzine HCl (Hydroxyzine Hcl 25 Mg Tablet) 25 mg PO Q6H PRN PRN Reason: mild anxiety Last Admin: 02/14/25 08:55 Dose: 25 mg Lamotrigine (Lamotrigine 25 Mg Tablet) 25 mg PO DAILY SAM Last Admin: 02/14/25 08:10 Dose: 25 mg Magnesium Hydroxide (Milk Of Magnesia 30 Ml Oral.Susp) 30 ml PO DAILY PRN PRN Reason: Constipation Quetiapine Fumarate (Quetiapine Fumarate 50 Mg Tablet) 50 mg PO BEDTIME MRX1 SAM Last Admin: 02/14/25 00:21 Dose: Not Given Quetiapine Fumarate (Quetiapine Fumarate 25 Mg Tablet) 12.5 mg PO TID PRN PRN Reason: anxiety Last Admin: 02/14/25 09:28 Dose: 12.5 mg Trazodone HCl (Trazodone Hcl 50 Mg Tablet) 50 mg PO BEDTIME MRX1 PRN PRN Reason: Insomnia Last Admin: 02/13/25 20:38 Dose: 50 mg Allergies Allergies Allergy/AdvReac Type Severity Reaction Status Date / Time No Known Allergies Allergy Verified 02/11/25 17:41 Assessment & Plan Assessment & Plan (1) MDD (major depressive disorder), recurrent severe, without psychosis: Status: Acute Code(s): F33.2 - Major depressive disorder, recurrent severe without psychotic features (2) PTSD (post-traumatic stress disorder): Status: Acute Code(s): F43.10 - Post-traumatic stress disorder, unspecified (3) Panic attack: Status: Acute Code(s): F41.0 - Panic disorder [episodic paroxysmal anxiety] (4) Alcohol abuse: Status: Acute Code(s): F10.10 - Alcohol abuse, uncomplicated Assessment and Plan: not likely risk withdrawal or need for ciwa with 2 x wk drinking Plan HPI: 29 yo with 3 kids living with fiance reports decline over last 2 1/2 months off buspar and sertraline- rxs had been sent by pcp in [place] moved here 2 years ago - Reportssuicidal ideation, depression, and anxiety. Patient reports that she feels hopeless and useless which is causing her to have relationship trouble. The only good thing I have going for me is my children, I have no friends . She reports a lot of forgetfulness around the house which upsets her and compounds her feelings of inadequacy. She denies current SI but has had intermittent passive SI over the past two months but states that it never reached a point of plan or intent. She reports that she is severely depressed everyday and reports anxiety daily which culminates in anxiety attacks which have gotten worse since she ran out of Buspar months ago. She reports that she has been drinking twice a week 3 to 4 drinks at a time which she feels is heavy and is enough to get her intoxicated. 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 about having to be at 100% when she was only at 25% Kids are with her fiance who is father of youngest child- Pt reports has not gotten sleep - though trazodone last pm here was helfpul- Has not been sleeping well, decreased energy, dec apt, no weight loss, decreased in interests except her kids- no si plan but thoughts of cutting that patient hasn't done in a decade- Feelings of guilt- , frequent panic attacks- Also inc drinking binge 4-5 drinks 2 x week- no hx withdrawal - Past Psychiatric History: hx suicide attempt at 15 yo hosp at [facility] - hx of seroquel until got 14 years ago with first child- after son 3 years ago was started on sertraline post and then buspar added Medical Evaluation Reviewed: Yes HOSPITAL COURSE: 8.3 Admit, discussed different antidep trial vs lamotrigine and quetiapine= pt definitely wants to go on seroquel, did warn patient about rash issue with lamotrigine so she is a bit hesitant about that- prn of hydroxyzine for anxiety and also low dose quetiapine for anxiety as well 8/ pt reports overall feeling much better; denies any SI and says mood is better. reviewed hx in detail and pt denies any hx of actual manic episodes; rather what she describes is moments of emotional reactivity that typical resolve in an hour and always within a day; she says she got bipolar dx when she was 15 yo (during which time home life was chaotic). -discussed trauma hx -discussed medication options and after reviewing risks/side-effects she agrees to start Venlafaxine for depression/anxiety/ptsd and to start intunive for ADHD symptoms; she agrees to continue lamictal PLAN: CV q15 start venlafaxine ER 37.5mg start Intunive 1mg daily continue lamictal Patient educated on: diagnosis, medication risk/benefits and therapeutic strategies Informed Consent: understands Reason for continued inpatient stay Substantial Risk for: rapid decompensation Time Spent With Patient Time: Total time managing care of this patient today ____ minutes.
[2025-02-14] MEDS: guanFACINE HCl ER 1 MG TAB.ER.24H PO (13:53)
[2025-02-14] MEDS: Venlafaxine HCl ER 37.5 MG CAP.ER.24H PO (13:53)
[2025-02-14 19:41] VITALS: BP 110/56; PULSE 77; TEMP 36.8; O2SAT 96
[2025-02-15 07:49] VITALS: BP 109/69; PULSE 65; RESP 18; TEMP 36.1; O2SAT 95
[2025-02-15] MEDS: Venlafaxine HCl ER 37.5 MG CAP.ER.24H PO (08:58)
[2025-02-15] MEDS: guanFACINE HCl ER 1 MG TAB.ER.24H PO (08:58)
[2025-02-15 12:59] VITALS: BP 112/86
--- NOTE | 2025-02-15 14:07 | HO.PSYCHPN ---
Subjective Subjective Date of Service: 02/15/25 Reason For Visit: ANXIETY Interim History: met with pt; discussed with team pt reports feeling much better; says w/ intuniv she can can think clearly, stay focused on conversations, keep her thoughts straight and not get distracted. Optimistic. Trouble sleeping and agrees to increase trazodone and add clonidine qhs Mental Status Exam Mental Status Exam Narrative: Pt is alert and oriented; behavior is cooperative, friendly and calm; patient is not in distress; dressed in casual attire with unkempt hair and cloths but adequate hygiene; mood is described as good and affect congruent; eye contact appropriate; Speech is normal rate, volume and prosody and not pressured; no psychomotor agitation/retardation present; thought process is organized and goal directed; Thought content is on tx; otherwise pertinent to relevant topics and without any delusional content, paranoid ideations or grandiosity; denies any SI/HI. Denies AVH and there is no evidence of perceptual disturbance. Patients insight and judgment appear intact. Diagnostics Vital Signs (24Hr): Vital Signs - 24 hr 02/14/25 19:41 02/15/25 07:49 02/15/25 12:59 Temperature 98.3 F 96.9 F Pulse Rate 77 65 Respiratory Rate 18 Blood Pressure 110/56 L 109/69 112/86 Pulse Oximetry 96 95 Oxygen Delivery Method Room Air Room Air BMI result Body Mass Index 32.8 Labs 02/13/25 07:57 02/13/25 07:57 Medications Medications Current Medications Acetaminophen (Acetaminophen 325 Mg Tablet) 650 mg PO Q6H PRN PRN Reason: Headache/Pain, Scale 1-10 Last Admin: 02/15/25 10:21 Dose: 650 mg Al Hydroxide/Mg Hydroxide (Magnesium Hydrox/Alum Hydrox 30 Ml Oral.Susp) 30 ml PO Q6H PRN PRN Reason: Heartburn/Nausea Benzocaine (Benzocaine 20 % Oral Gel 9 Gm Tube) 1 appl MUCOUS MEM QID PRN; Protocol PRN Reason: Pain, Mild (Pain Scale 1-3) Last Admin: 02/13/25 13:48 Dose: 1 appl Clonidine HCl (Clonidine Hcl 0.1 Mg Tablet) 0.1 mg PO Q4H PRN; Protocol PRN Reason: moderate anxiety Last Admin: 02/15/25 12:59 Dose: 0.1 mg Clonidine HCl (Clonidine Hcl 0.1 Mg Tablet) 0.1 mg PO BEDTIME SAM; Protocol Guanfacine HCl (Guanfacine Hcl Er 1 Mg Tab.Er.24h) 1 mg PO DAILY SAM Last Admin: 02/15/25 08:58 Dose: 1 mg Hydroxyzine HCl (Hydroxyzine Hcl 25 Mg Tablet) 25 mg PO Q6H PRN PRN Reason: mild anxiety Last Admin: 02/15/25 09:54 Dose: 25 mg Ibuprofen (Ibuprofen 600 Mg Tablet) 600 mg PO Q8H PRN PRN Reason: tooth pain Lamotrigine (Lamotrigine 25 Mg Tablet) 25 mg PO DAILY SAM Last Admin: 02/15/25 08:58 Dose: 25 mg Magnesium Hydroxide (Milk Of Magnesia 30 Ml Oral.Susp) 30 ml PO DAILY PRN PRN Reason: Constipation Quetiapine Fumarate (Quetiapine Fumarate 50 Mg Tablet) 50 mg PO BEDTIME MRX1 SAM Last Admin: 02/14/25 21:30 Dose: 50 mg Trazodone HCl (Trazodone Hcl 100 Mg Tablet) 100 mg PO BEDTIME SAM Venlafaxine HCl (Venlafaxine Hcl Er 75 Mg Cap.Er.24h) 75 mg PO DAILY COUNTS INCLUDE 234 BEDS AT THE [facility] Allergies Allergies Allergy/AdvReac Type Severity Reaction Status Date / Time No Known Allergies Allergy Verified 02/11/25 17:41 Assessment & Plan Assessment & Plan (1) MDD (major depressive disorder), recurrent severe, without psychosis: Status: Acute Code(s): F33.2 - Major depressive disorder, recurrent severe without psychotic features (2) PTSD (post-traumatic stress disorder): Status: Acute Code(s): F43.10 - Post-traumatic stress disorder, unspecified (3) Panic attack: Status: Acute Code(s): F41.0 - Panic disorder [episodic paroxysmal anxiety] (4) Alcohol abuse: Status: Acute Code(s): F10.10 - Alcohol abuse, uncomplicated Assessment and Plan: not likely risk withdrawal or need for ciwa with 2 x wk drinking Plan HPI: 29 yo with 3 kids living with fiance reports decline over last 2 1/2 months off buspar and sertraline- rxs had been sent by pcp in [facility] here 2 years ago - Reportssuicidal ideation, depression, and anxiety. Patient reports that she feels hopeless and useless which is causing her to have relationship trouble. The only good thing I have going for me is my children, I have no friends . She reports a lot of forgetfulness around the house which upsets her and compounds her feelings of inadequacy. She denies current SI but has had intermittent passive SI over the past two months but states that it never reached a point of plan or intent. She reports that she is severely depressed everyday and reports anxiety daily which culminates in anxiety attacks which have gotten worse since she ran out of Buspar months ago. She reports that she has been drinking twice a week 3 to 4 drinks at a time which she feels is heavy and is enough to get her intoxicated. 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 about having to be at 100% when she was only at 25% Kids are with her fiance who is father of youngest child- Pt reports has not gotten sleep - though trazodone last pm here was helfpul- Has not been sleeping well, decreased energy, dec apt, no weight loss, decreased in interests except her kids- no si plan but thoughts of cutting that patient hasn't done in a decade- Feelings of guilt- , frequent panic attacks- Also inc drinking binge 4-5 drinks 2 x week- no hx withdrawal - Past Psychiatric History: hx suicide attempt at 15 yo hosp at [facility] - hx of seroquel until got 12 years ago with first child- after son 3 years ago was started on sertraline post and then buspar added Medical Evaluation Reviewed: Yes HOSPITAL COURSE: 8.3 Admit, discussed different antidep trial vs lamotrigine and quetiapine= pt definitely wants to go on seroquel, did warn patient about rash issue with lamotrigine so she is a bit hesitant about that- prn of hydroxyzine for anxiety and also low dose quetiapine for anxiety as well 8/4 pt reports overall feeling much better; denies any SI and says mood is better. reviewed hx in detail and pt denies any hx of actual manic episodes; rather what she describes is moments of emotional reactivity that typical resolve in an hour and always within a day; she says she got bipolar dx when she was 15 yo (during which time home life was chaotic). -discussed trauma hx -discussed medication options and after reviewing risks/side-effects she agrees to start Venlafaxine for depression/anxiety/ptsd and to start intunive for ADHD symptoms; she agrees to continue lamictal 02/15 pt reports feeling much better; says w/ intuniv she can can think clearly, stay focused on conversations, keep her thoughts straight and not get distracted. Optimistic. Trouble sleeping and agrees to increase trazodone and add clonidine qhs -placed 3 day and feeling ready to go home by ; agrees to remain for continued treatment Plan: 3 day q15 increased to Venlafaxine ER 75mg increase and schedule Trazodone 100mg qhs schedule Clonidine 0.1mg qhs continue Lamitcal 25mg daily continue Intunive 1mg daily Patient educated on: diagnosis and medication risk/benefits Informed Consent: understands Reason for continued inpatient stay Substantial Risk for: stable for discharge and rapid decompensation Time Spent With Patient Time: Total time managing care of this patient today ____ minutes.
[2025-02-15 19:53] VITALS: BP 129/80; PULSE 88; RESP 20; TEMP 36.4; O2SAT 100
[2025-02-16 08:00] VITALS: BP 125/76; PULSE 63; RESP 16; TEMP 36.4
[2025-02-16] MEDS: Venlafaxine HCl ER 75 MG CAP.ER.24H PO (08:42)
[2025-02-16] MEDS: guanFACINE HCl ER 1 MG TAB.ER.24H PO (08:43)
[2025-02-16 10:40] VITALS: BP 138/75
--- NOTE | 2025-02-16 13:11 | P.PNPSI_ITS ---
Subjective Subjective Date of Service: 02/16/25 Reason For Visit: ANXIETY Interim History: met with patient; discussed with team pt reports mood is good and that she's doing well; pt slept well on Clonidine and increased Trazodone and wants to continue. Discussed again risks/side-effect of Lamictal and she would like to continue even though currently stable. Discussed aftercare with pt and SW who is eager for continued treatment including partial day program regarding alcohol abuse over past 2 months to cope with symptoms (since off meds); at this time patient does not want help with substance abuse treatment. Mental Status Exam Mental Status Exam Narrative: Pt is alert and oriented; behavior is cooperative, friendly and calm; patient is not in distress; dressed in casual attire with unkempt hair and cloths but adequate hygiene; mood is described as good and affect congruent; eye contact appropriate; Speech is normal rate, volume and prosody and not pressured; no psychomotor agitation/retardation present; thought process is organized and goal directed; Thought content is on tx; otherwise pertinent to relevant topics and without any delusional content, paranoid ideations or grandiosity; denies any SI/HI. Denies AVH and there is no evidence of perceptual disturbance. Patients insight and judgment fair. Diagnostics Vital Signs (24Hr): Vital Signs - 24 hr 02/15/25 19:53 02/16/25 08:00 02/16/25 10:40 Temperature 97.6 F 97.6 F Pulse Rate 88 63 Respiratory Rate 20 16 Blood Pressure 129/80 125/76 138/75 Pulse Oximetry 100 Oxygen Delivery Method Room Air BMI result Body Mass Index 32.8 Labs 02/13/25 07:57 02/13/25 07:57 Medications Medications Current Medications Acetaminophen (Acetaminophen 325 Mg Tablet) 650 mg PO Q6H PRN PRN Reason: Headache/Pain, Scale 1-10 Last Admin: 02/16/25 08:53 Dose: 650 mg Al Hydroxide/Mg Hydroxide (Magnesium Hydrox/Alum Hydrox 30 Ml Oral.Susp) 30 ml PO Q6H PRN PRN Reason: Heartburn/Nausea Benzocaine (Benzocaine 20 % Oral Gel 9 Gm Tube) 1 appl MUCOUS MEM QID PRN; Protocol PRN Reason: Pain, Mild (Pain Scale 1-3) Last Admin: 02/13/25 13:48 Dose: 1 appl Clonidine HCl (Clonidine Hcl 0.1 Mg Tablet) 0.1 mg PO Q4H PRN; Protocol PRN Reason: moderate anxiety Last Admin: 02/16/25 10:40 Dose: 0.1 mg Clonidine HCl (Clonidine Hcl 0.1 Mg Tablet) 0.1 mg PO BEDTIME SAM; Protocol Last Admin: 02/15/25 21:03 Dose: 0.1 mg Guanfacine HCl (Guanfacine Hcl Er 1 Mg Tab.Er.24h) 1 mg PO DAILY SAM Last Admin: 02/16/25 08:43 Dose: 1 mg Hydroxyzine HCl (Hydroxyzine Hcl 25 Mg Tablet) 25 mg PO Q6H PRN PRN Reason: mild anxiety Last Admin: 02/16/25 08:53 Dose: 25 mg Ibuprofen (Ibuprofen 600 Mg Tablet) 600 mg PO Q8H PRN PRN Reason: tooth pain Last Admin: 02/15/25 14:20 Dose: 600 mg Lamotrigine (Lamotrigine 25 Mg Tablet) 25 mg PO DAILY [facility] Last Admin: 02/16/25 08:42 Dose: 25 mg Magnesium Hydroxide (Milk Of Magnesia 30 Ml Oral.Susp) 30 ml PO DAILY PRN PRN Reason: Constipation Quetiapine Fumarate (Quetiapine Fumarate 50 Mg Tablet) 50 mg PO BEDTIME MRX1 PRN PRN Reason: for CONTINUED insomnia Last Admin: 02/15/25 22:09 Dose: 50 mg Trazodone HCl (Trazodone Hcl 100 Mg Tablet) 100 mg PO BEDTIME SAM Last Admin: 02/15/25 21:03 Dose: 100 mg Venlafaxine HCl (Venlafaxine Hcl Er 75 Mg Cap.Er.24h) 75 mg PO DAILY [facility] Last Admin: 02/16/25 08:42 Dose: 75 mg Allergies Allergies Allergy/AdvReac Type Severity Reaction Status Date / Time No Known Allergies Allergy Verified 02/11/25 17:41 Assessment & Plan Assessment & Plan (1) MDD (major depressive disorder), recurrent severe, without psychosis: Status: Acute Code(s): F33.2 - Major depressive disorder, recurrent severe without psychotic features (2) PTSD (post-traumatic stress disorder): Status: Acute Code(s): F43.10 - Post-traumatic stress disorder, unspecified (3) Panic attack: Status: Acute Code(s): F41.0 - Panic disorder [episodic paroxysmal anxiety] (4) Alcohol abuse: Status: Acute Code(s): F10.10 - Alcohol abuse, uncomplicated Assessment and Plan: not likely risk withdrawal or need for ciwa with 2 x wk drinking Plan HPI: 29 yo with 3 kids living with fimilind reports decline over last 2 1/2 months off buspar and sertraline- rxs had been sent by pcp in [facility] here 2 years ago - Reportssuicidal ideation, depression, and anxiety. Patient reports that she feels hopeless and useless which is causing her to have relationship trouble. The only good thing I have going for me is my children, I have no friends . She reports a lot of forgetfulness around the house which upsets her and compounds her feelings of inadequacy. She denies current SI but has had intermittent passive SI over the past two months but states that it never reached a point of plan or intent. She reports that she is severely depressed everyday and reports anxiety daily which culminates in anxiety attacks which have gotten worse since she ran out of Buspar months ago. She reports that she has been drinking twice a week 3 to 4 drinks at a time which she feels is heavy and is enough to get her intoxicated. 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 about having to be at 100% when she was only at 25% Kids are with her fiance who is father of youngest child- Pt reports has not gotten sleep - though trazodone last pm here was helfpul- Has not been sleeping well, decreased energy, dec apt, no weight loss, decreased in interests except her kids- no si plan but thoughts of cutting that patient hasn't done in a decade- Feelings of guilt- , frequent panic attacks- Also inc drinking binge 4-5 drinks 2 x week- no hx withdrawal - Past Psychiatric History: hx suicide attempt at 15 yo hosp at [place] - hx of seroquel until got 14 years ago with first child- after son 3 years ago was started on sertraline post and then buspar added Medical Evaluation Reviewed: Yes HOSPITAL COURSE: 8.3 Admit, discussed different antidep trial vs lamotrigine and quetiapine= pt definitely wants to go on seroquel, did warn patient about rash issue with lamotrigine so she is a bit hesitant about that- prn of hydroxyzine for anxiety and also low dose quetiapine for anxiety as well 02/14 pt reports overall feeling much better; denies any SI and says mood is better. reviewed hx in detail and pt denies any hx of actual manic episodes; rather what she describes is moments of emotional reactivity that typical resolve in an hour and always within a day; she says she got bipolar dx when she was 15 yo (during which time home life was chaotic). -discussed trauma hx -discussed medication options and after reviewing risks/side-effects she agrees to start Venlafaxine for depression/anxiety/ptsd and to start intunive for ADHD symptoms; she agrees to continue lamictal 02/15 pt reports feeling much better; says w/ intuniv she can can think clearly, stay focused on conversations, keep her thoughts straight and not get distracted. Optimistic. Trouble sleeping and agrees to increase trazodone and add clonidine qhs -placed 3 day and feeling ready to go home by ; agrees to remain for continued treatment 02/16 pt reports mood is good and that she's doing well; pt slept well on Clonidine and increased Trazodone and wants to continue. Discussed again risks/side-effect of Lamictal and she would like to continue even though currently stable. Discussed aftercare with pt and SW who is eager for continued treatment including partial day program -regarding alcohol abuse over past 2 months to cope with symptoms (since off meds); at this time patient does not want help with substance abuse treatment. pt is at baseline; remains in good behavioral/impulse control and appropriate with peers/staff. good mood, no SI, eating and sleeping well; returning to supportive and family. Pt has 3 day notice due. She is not in imminent risk for harm to self or others and appropriate to returning to community for tx. request for dc honored. Plan: 3 day q15 Venlafaxine ER 75mg Trazodone 100mg qhs schedule Clonidine 0.1mg qhs continue Lamitcal 25mg daily continue Intunive 1mg daily Patient educated on: diagnosis, medication risk/benefits and therapeutic strategies Informed Consent: understands Reason for continued inpatient stay Substantial Risk for: stable for discharge Time Spent With Patient Time: Total time managing care of this patient today ____ minutes.
[2025-02-16 20:00] VITALS: BP 102/60; PULSE 76; TEMP 36.1; O2SAT 99
[2025-02-16 21:19] VITALS: BP 102/60
--- NOTE | 2025-02-16 22:11 | PM.PSYDC ---
DS: Providers Provider Date of Service: 02/17/25 Date of admission: 02/12/25 17:18 Date of discharge: 02/17/25 Primary care physician: None Physician Attending physician on admission: Claire Terry Consults: 02/11/25 18:48 ED CARE Team Crisis Consult Stat Comment: Reason for consultation: SI with plan, off meds Attending physician on discharge: Rusty Menchaca DS: Diagnosis Discharge Diagnosis (1) MDD (major depressive disorder), recurrent severe, without psychosis: Status: Acute (2) PTSD (post-traumatic stress disorder): Status: Acute (3) Panic attack: Status: Acute (4) Alcohol abuse: Status: Acute DS: Medications Discharge Medications Home Medications: Previous Rx's ?Medication ?Instructions ?Recorded clonidine HCl 0.1 mg tablet 0.1 mg PO Q4H PRN moderate 02/16/25 anxiety/insomnia 30 days #90 tabs guanfacine 1 mg tablet,extended 1 mg PO DAILY 30 days #30 tabs 02/16/25 release 24 hr hydroxyzine HCl 25 mg tablet 25 mg PO Q6H PRN mild anxiety 30 02/16/25 days #90 tabs lamotrigine 25 mg tablet 25 mg PO DAILY 30 days #30 tabs 02/16/25 trazodone 100 mg tablet 100 mg PO BEDTIME 30 days #30 tabs 02/16/25 venlafaxine 75 mg capsule,extended 75 mg PO DAILY 30 days #30 caps 02/16/25 release 24 hr Mental Status Exam Mental Status Exam Narrative: Pt is alert and oriented; behavior is cooperative, friendly and calm; patient is not in distress; dressed in casual attire; mood is described as good and affect congruent; eye contact appropriate; Speech is normal rate, volume and prosody and not pressured; no psychomotor agitation/retardation present; thought process is organized and goal directed; Thought content is on tx; otherwise pertinent to relevant topics and without any delusional content, paranoid ideations or grandiosity; denies any SI/HI. Denies AVH and there is no evidence of perceptual disturbance. Patients insight and judgment fair. Data Data Completed and Pending Completed studies during hospitalization [Text1]: 02/11/25 02/11/25 02/12/25 18:16 18:20 17:53 WBC 12.7 H RBC 4.27 Hgb 13.2 Hct 38.6 MCV 90.4 MCH 30.9 MCHC 34.2 RDW 14.2 Plt Count 262 MPV 9.6 Immature Gran % (Auto) 0.5 H Neut % (Auto) 81.6 H Lymph % (Auto) 11.7 L [place] % (Auto) 5.1 Eos % (Auto) 0.5 Baso % (Auto) 0.6 Lymph # (Auto) 1.5 [place] # (Auto) 0.7 Eos # (Auto) 0.1 Baso # (Auto) 0.1 Abs Immat Gran (auto) 0.06 H Absolute Neuts (auto) 10.4 H Absolute Nucleated RBC 0.000 Nucleated RBC % (auto) 0.0 Sodium 141 Potassium 3.0 L Chloride 105 Carbon Dioxide 27 Anion Gap 12 BUN 10 Creatinine 0.85 Estim Creat Clear Calc 89.4 Estimated GFR > 60 Random Glucose 106 Estimat Average Glucose Hemoglobin A1c % Calcium 9.1 D Total Bilirubin 0.5 AST 23 ALT 13 Alkaline Phosphatase 80 Total Protein 6.9 Albumin 4.1 Triglycerides Cholesterol LDL Cholesterol, Calc HDL Cholesterol Urine Color Yellow Urine Appearance Clear Urine pH 6.0 Ur Specific [place] 1.020 Urine Protein Trace Urine Glucose (UA) Negative Urine Ketones 15 Urine Blood Negative Urine Nitrite Negative Ur Leukocyte Esterase Trace H Urine RBC 0-2 Urine WBC 0-5 Ur Squamous Epith Cells 11-20 Urine Bacteria 2+ Hyaline Casts 0-2 Urine Test NEGATIVE Salicylates < 5.0 L Urine Opiates Screen Not Detected Not Detected Ur Buprenorphine Scrn Not Detected Not Detected Ur Oxycodone Screen Not Detected Not Detected Urine Methadone Screen Not Detected Not Detected Urine Fentanyl Screen Not Detected Not Detected Acetaminophen < 3 Ur Barbiturates Screen Not Detected Not Detected Ur Phencyclidine Scrn Not Detected Not Detected Ur Amphetamines Screen Not Detected Not Detected U Benzodiazepines Scrn Not Detected Not Detected Urine Cocaine Screen Not Detected Not Detected U Marijuana (THC) Screen POSITIVE H POSITIVE H Ethyl Alcohol < 10 02/13/25 07:57 WBC 9.2 RBC 4.64 Hgb 14.0 Hct 41.8 MCV 90.1 MCH 30.2 MCHC 33.5 RDW 14.5 Plt Count 289 MPV 9.7 Immature Gran % (Auto) 0.4 Neut % (Auto) 55.7 Lymph % (Auto) 31.7 [place] % (Auto) 7.2 Eos % (Auto) 4.2 H Baso % (Auto) 0.8 Lymph # (Auto) 2.9 [place] # (Auto) 0.7 Eos # (Auto) 0.4 Baso # (Auto) 0.1 Abs Immat Gran (auto) 0.04 H Absolute Neuts (auto) 5.1 Absolute Nucleated RBC 0.000 Nucleated RBC % (auto) 0.0 Sodium 142 Potassium 3.7 D Chloride 105 Carbon Dioxide 28 Anion Gap 13 BUN 9 Creatinine 0.82 Estim Creat Clear Calc 113.8 Estimated GFR > 60 Random Glucose 87 Estimat Average Glucose 88 Hemoglobin A1c % 4.7 Calcium 9.1 Total Bilirubin 0.5 AST 18 ALT 12 Alkaline Phosphatase 73 Total Protein 6.9 Albumin 4.0 Triglycerides 83 Cholesterol 139 LDL Cholesterol, Calc 78 HDL Cholesterol 45 Urine Color Urine Appearance Urine pH Ur Specific [place] Urine Protein Urine Glucose (UA) Urine Ketones Urine Blood Urine Nitrite Ur Leukocyte Esterase Urine RBC Urine WBC Ur Squamous Epith Cells Urine Bacteria Hyaline Casts Urine Test Salicylates Urine Opiates Screen Ur Buprenorphine Scrn Ur Oxycodone Screen Urine Methadone Screen Urine Fentanyl Screen Acetaminophen Ur Barbiturates Screen Ur Phencyclidine Scrn Ur Amphetamines Screen U Benzodiazepines Scrn Urine Cocaine Screen U Marijuana (THC) Screen Ethyl Alcohol DS: Summary Hospital Course Hospital Course: HPI: 29 yo with 3 kids living with fimilind reports decline over last 2 1/2 months off buspar and sertraline- rxs had been sent by pcp in [place] moved here 2 years ago - Reportssuicidal ideation, depression, and anxiety. Patient reports that she feels hopeless and useless which is causing her to have relationship trouble. The only good thing I have going for me is my children, I have no friends . She reports a lot of forgetfulness around the house which upsets her and compounds her feelings of inadequacy. She denies current SI but has had intermittent passive SI over the past two months but states that it never reached a point of plan or intent. She reports that she is severely depressed everyday and reports anxiety daily which culminates in anxiety attacks which have gotten worse since she ran out of Buspar months ago. She reports that she has been drinking twice a week 3 to 4 drinks at a time which she feels is heavy and is enough to get her intoxicated. has had therapist at [facility] but despite requests never got connected with prescriber- [employer] patient was stressed about having to be at 100% when she was only at 25% Kids are with her fiance who is father of youngest child- Pt reports has not gotten sleep - though trazodone last pm here was helfpul- Has not been sleeping well, decreased energy, dec apt, no weight loss, decreased in interests except her kids- no si plan but thoughts of cutting that patient hasn't done in a decade- Feelings of guilt- , frequent panic attacks- Also inc drinking binge 4-5 drinks 2 x week- no hx withdrawal - Past Psychiatric History: hx suicide attempt at 15 yo hosp at [place] - hx of seroquel until got 12 years ago with first child- after son 3 years ago was started on sertraline post and then buspar added Medical Evaluation Reviewed: Yes HOSPITAL COURSE: 8.3 Admit, discussed different antidep trial vs lamotrigine and quetiapine= pt definitely wants to go on seroquel, did warn patient about rash issue with lamotrigine so she is a bit hesitant about that- prn of hydroxyzine for anxiety and also low dose quetiapine for anxiety as well 02/14 pt reports overall feeling much better; denies any SI and says mood is better. reviewed hx in detail and pt denies any hx of actual manic episodes; rather what she describes is moments of emotional reactivity that typical resolve in an hour and always within a day; she says she got bipolar dx when she was 15 yo (during which time home life was chaotic). -discussed trauma hx -discussed medication options and after reviewing risks/side-effects she agrees to start Venlafaxine for depression/anxiety/ptsd and to start intunive for ADHD symptoms; she agrees to continue lamictal 02/15 pt reports feeling much better; says w/ intuniv she can can think clearly, stay focused on conversations, keep her thoughts straight and not get distracted. Optimistic. Trouble sleeping and agrees to increase trazodone and add clonidine qhs -placed 3 day and feeling ready to go home by ; agrees to remain for continued treatment 02/16 pt reports mood is good and that she's doing well; pt slept well on Clonidine and increased Trazodone and wants to continue. Discussed again risks/side-effect of Lamictal and she would like to continue even though currently stable. Discussed aftercare with pt and SW who is eager for continued treatment including partial day program -regarding alcohol abuse over past 2 months to cope with symptoms (since off meds); at this time patient does not want help with substance abuse treatment. pt is at baseline; remains in good behavioral/impulse control and appropriate with peers/staff. good mood, no SI, eating and sleeping well; returning to supportive and family. Pt has 3 day notice due. She is not in imminent risk for harm to self or others and appropriate to returning to community for tx. request for dc honored. Medictions: Venlafaxine ER 75mg Trazodone 100mg qhs schedule Clonidine 0.1mg q4h/qhs continue Lamitcal 25mg daily continue Intunive 1mg daily Status at Discharge Functional status at discharge: independent ambulation Overall status at discharge: patient is back to baseline Time Spent with Patient Time attestation: Total time managing care of this patient today ____ minutes. Time spent: Less than 30 minutes Discharge Plan Discharge Anticipated Discharge Date/Time: 02/17/25 11:30 Patient Disposition: Home, Self-Care Discharge Diagnosis: MDD, recurrent severe, without psychosis, in full remission Referrals: Physician,None [Primary Care Provider, Medical] - 1 Week Discharge Medications: New clonidine HCl 0.1 mg Tablet 0.1 mg PO Q4H PRN (Reason: moderate anxiety/insomnia) 30 Days Qty: 90 0RF Protocol: Hold for SBP< HOLD for SBP < : 90 guanfacine 1 mg Tablet Extended Release 24 Hr 1 mg PO DAILY 30 Days Qty: 30 0RF hydroxyzine HCl 25 mg Tablet 25 mg PO Q6H PRN (Reason: mild anxiety) 30 Days Qty: 90 0RF lamotrigine 25 mg Tablet 25 mg PO DAILY 30 Days Qty: 30 0RF trazodone 100 mg Tablet 100 mg PO BEDTIME 30 Days Qty: 30 0RF venlafaxine 75 mg Capsule,Extended Release 24hr 75 mg PO DAILY 30 Days Qty: 30 0RF Discharge Orders: Discharge Order (Routine); Ordered 02/17/25 Ordered By: Rusty Menchaca Diet: Regular diet Activity on Discharge: As tolerated Stand Alone Forms: Patient Portal Discharge page Print Language: [place]ian Care Plan Goals: Maintain mood and safe behaviors Take medications as prescribed Continue to pursue sobriety Practice coping skills Continue with outpatient providers and reach out to them as needed Health Concerns: Mood stability and behaviors Sobriety Plan of Treatment: Follow up with your PCP, psychiatric provider and other outpatient providers regarding above concerns Take medications as prescribed Assessment: Risk assessment at time of discharge:? Patient was interviewed prior to discharge and found to be fully oriented and without any SI or HI. Patient has improved insight and judgment and wants to continue treatment. Patient is not in imminent risk of harm to self or others and has a safety plan that includes presenting to the closest ER or calling 911 if feeling unsafe.? Patient has been observed closely by nursing and unit staff throughout admission; patient has not engaged in any behaviors that suggest dangerousness to self or others and has demonstrated appropriate behaviors and impulse control
[2025-02-17 08:00] VITALS: BP 119/69; PULSE 69; TEMP 36.1; O2SAT 98
[2025-02-17] MEDS: guanFACINE HCl ER 1 MG TAB.ER.24H PO (08:27)
[2025-02-17] MEDS: Venlafaxine HCl ER 75 MG CAP.ER.24H PO (08:28)
--- NOTE | 2025-02-17 09:54 | P.DS_ITS ---
DS: Providers Provider Date of Service: 02/17/25 Date of admission: 02/12/25 17:18 Date of discharge: 02/17/25 Primary care physician: None Physician Admitting clinician: Claire Terry Attending physician on admission: Saad Lilly Consults: 02/11/25 18:48 ED CARE Team Crisis Consult Stat Comment: Reason for consultation: SI with plan, off meds Attending physician on discharge: Saad Lilly Discharging clinician: Maria L Mabry DS: Diagnosis Discharge Diagnosis (1) MDD (major depressive disorder), recurrent severe, without psychosis: Status: Acute (2) PTSD (post-traumatic stress disorder): Status: Acute (3) Panic attack: Status: Acute (4) Alcohol abuse: Status: Acute DS: Medications Discharge Medications Home Medications: Previous Rx's ?Medication ?Instructions ?Recorded clonidine HCl 0.1 mg tablet 0.1 mg PO Q4H PRN moderate 02/16/25 anxiety/insomnia 30 days #90 tabs guanfacine 1 mg tablet,extended 1 mg PO DAILY 30 days #30 tabs 02/16/25 release 24 hr hydroxyzine HCl 25 mg tablet 25 mg PO Q6H PRN mild anx iety 30 02/16/25 days #90 tabs lamotrigine 25 mg tablet 25 mg PO DAILY 30 days #30 t abs 02/16/25 trazodone 100 mg tablet 100 mg PO BEDTIME 30 days #3 0 tabs 02/16/25 venlafaxine 75 mg capsule,extended 75 mg PO DAILY 30 d ays #30 caps 02/16/25 release 24 hr Mental Status Exam Mental Status Exam Narrative: Appearance: Casually dressed, adequate hygiene Behavior: Calm and cooperative throughout the interview. Eye contact is appropriate, and there are no signs of psychomotor agitation or retardation Speech: Normal volume and prosody Thought process: Logical and goal-directed Thought content: Future oriented no self-harming thoughts Mood: Euthymic Affect: Full, mood-congruent SI:denies HI:denies VH/AH:none Delusions: None Insight/judgment: Good insight and judgment Memory/cog: Alert, oriented x 4. grossly intact to conversational testing Data Data Completed and Pending Completed studies during hospitalization [Text1]: 02/11/25 02/11/25 02/12/25 18:16 18:20 17:53 WBC 12.7 H RBC 4.27 Hgb 13.2 Hct 38.6 MCV 90.4 MCH 30.9 MCHC 34.2 RDW 14.2 Plt Count 262 MPV 9.6 Immature Gran % (Auto) 0.5 H Neut % (Auto) 81.6 H Lymph % (Auto) 11.7 L [place] % (Auto) 5.1 Eos % (Auto) 0.5 Baso % (Auto) 0.6 Lymph # (Auto) 1.5 [place] # (Auto) 0.7 Eos # (Auto) 0.1 Baso # (Auto) 0.1 Abs Immat Gran (auto) 0.06 H Absolute Neuts (auto) 10.4 H Absolute Nucleated RBC 0.000 Nucleated RBC % (auto) 0.0 Sodium 141 Potassium 3.0 L Chloride 105 Carbon Dioxide 27 Anion Gap 12 BUN 10 Creatinine 0.85 Estim Creat Clear Calc 89.4 Estimated GFR > 60 Random Glucose 106 Estimat Average Glucose Hemoglobin A1c % Calcium 9.1 D Total Bilirubin 0.5 AST 23 ALT 13 Alkaline Phosphatase 80 Total Protein 6.9 Albumin 4.1 Triglycerides Cholesterol LDL Cholesterol, Calc HDL Cholesterol Urine Color Yellow Urine Appearance Clear Urine pH 6.0 Ur Specific [place] 1.020 Urine Protein Trace Urine Glucose (UA) Negative Urine Ketones 15 Urine Blood Negative Urine Nitrite Negative Ur Leukocyte Esterase Trace H Urine RBC 0-2 Urine WBC 0-5 Ur Squamous Epith Cells 11-20 Urine Bacteria 2+ Hyaline Casts 0-2 Urine Test NEGATIVE Salicylates < 5.0 L Urine Opiates Screen Not Detected Not Detected Ur Buprenorphine Scrn Not Detected Not Detected Ur Oxycodone Screen Not Detected Not Detected Urine Methadone Screen Not Detected Not Detected Urine Fentanyl Screen Not Detected Not Detected Acetaminophen < 3 Ur Barbiturates Screen Not Detected Not Detected Ur Phencyclidine Scrn Not Detected Not Detected Ur Amphetamines Screen Not Detected Not Detected U Benzodiazepines Scrn Not Detected Not Detected Urine Cocaine Screen Not Detected Not Detected U Marijuana (THC) Screen POSITIVE H POSITIVE H Ethyl Alcohol < 10 02/13/25 07:57 WBC 9.2 RBC 4.64 Hgb 14.0 Hct 41.8 MCV 90.1 MCH 30.2 MCHC 33.5 RDW 14.5 Plt Count 289 MPV 9.7 Immature Gran % (Auto) 0.4 Neut % (Auto) 55.7 Lymph % (Auto) 31.7 [place] % (Auto) 7.2 Eos % (Auto) 4.2 H Baso % (Auto) 0.8 Lymph # (Auto) 2.9 [place] # (Auto) 0.7 Eos # (Auto) 0.4 Baso # (Auto) 0.1 Abs Immat Gran (auto) 0.04 H Absolute Neuts (auto) 5.1 Absolute Nucleated RBC 0.000 Nucleated RBC % (auto) 0.0 Sodium 142 Potassium 3.7 D Chloride 105 Carbon Dioxide 28 Anion Gap 13 BUN 9 Creatinine 0.82 Estim Creat Clear Calc 113.8 Estimated GFR > 60 Random Glucose 87 Estimat Average Glucose 88 Hemoglobin A1c % 4.7 Calcium 9.1 Total Bilirubin 0.5 AST 18 ALT 12 Alkaline Phosphatase 73 Total Protein 6.9 Albumin 4.0 Triglycerides 83 Cholesterol 139 LDL Cholesterol, Calc 78 HDL Cholesterol 45 Urine Color Urine Appearance Urine pH Ur Specific [place] Urine Protein Urine Glucose (UA) Urine Ketones Urine Blood Urine Nitrite Ur Leukocyte Esterase Urine RBC Urine WBC Ur Squamous Epith Cells Urine Bacteria Hyaline Casts Urine Test Salicylates Urine Opiates Screen Ur Buprenorphine Scrn Ur Oxycodone Screen Urine Methadone Screen Urine Fentanyl Screen Acetaminophen Ur Barbiturates Screen Ur Phencyclidine Scrn Ur Amphetamines Screen U Benzodiazepines Scrn Urine Cocaine Screen U Marijuana (THC) Screen Ethyl Alcohol DS: Summary Hospital Course Hospital Course: HPI: 29 yo with 3 kids living with abran reports decline over last 2 1/2 months off buspar and sertraline- rxs had been sent by pcp in [place] moved here 2 years ago - Reportssuicidal ideation, depression, and anxiety. Patient reports that she feels hopeless and useless which is causing her to have relationship trouble. The only good thing I have going for me is my children, I have no friends . She reports a lot of forgetfulness around the house which upsets her and compounds her feelings of inadequacy. She denies current SI but has had intermittent passive SI over the past two months but states that it never reached a point of plan or intent. She reports that she is severely depressed everyday and reports anxiety daily which culminates in anxiety attacks which have gotten worse since she ran out of Buspar months ago. She reports that she has been drinking twice a week 3 to 4 drinks at a time which she feels is heavy and is enough to get her intoxicated. has had therapist at [facility] but despite requests never got connected with prescriber- [employer] WORK [employer]OB [employer] patient was stressed about having to be at 100% when she was only at 25% Kids are with her fiance who is father of youngest child- Pt reports has not gotten sleep - though trazodone last pm here was helfpul- Has not been sleeping well, decreased energy, dec apt, no weight loss, decreased in interests except her kids- no si plan but thoughts of cutting that patient hasn't done in a decade- Feelings of guilt- , frequent panic attacks- Also inc drinking binge 4-5 drinks 2 x week- no hx withdrawal - Past Psychiatric History: hx suicide attempt at 15 yo hosp at [facility] - hx of seroquel until got 12 years ago with first child- after son 3 years ago was started on sertraline post and then buspar added Medical Evaluation Reviewed: Yes HOSPITAL COURSE: 8.3 Admit, discussed different antidep trial vs lamotrigine and quetiapine= pt definitely wants to go on seroquel, did warn patient about rash issue with lamotrigine so she is a bit hesitant about that- prn of hydroxyzine for anxiety and also low dose quetiapine for anxiety as well 02/14 pt reports overall feeling much better; denies any SI and says mood is better. reviewed hx in detail and pt denies any hx of actual manic episodes; rather what she describes is moments of emotional reactivity that typical resolve in an hour and always within a day; she says she got bipolar dx when she was 15 yo (during which time home life was chaotic). -discussed trauma hx -discussed medication options and after reviewing risks/side-effects she agrees to start Venlafaxine for depression/anxiety/ptsd and to start intunive for ADHD symptoms; she agrees to continue lamictal 02/15 pt reports feeling much better; says w/ intuniv she can can think clearly, stay focused on conversations, keep her thoughts straight and not get distracted. Optimistic. Trouble sleeping and agrees to increase trazodone and add clonidine qhs -placed 3 day and feeling ready to go home by ; agrees to remain for continued treatment 02/16 pt reports mood is good and that she's doing well; pt slept well on Clonidine and increased Trazodone and wants to continue. Discussed again risks/side-effect of Lamictal and she would like to continue even though currently stable. Discussed aftercare with pt and SW who is eager for continued treatment including partial day program -regarding alcohol abuse over past 2 months to cope with symptoms (since off meds); at this time patient does not want help with substance abuse treatment. pt is at baseline; remains in good behavioral/impulse control and appropriate with peers/staff. good mood, no SI, eating and sleeping well; returning to supportive and family. Pt has 3 day notice due. She is not in imminent risk for harm to self or others and appropriate to returning to community for tx. request for dc honored. 02/17: Patient notes that she feels great. She is happy to go home to her and 3 children today. She feels a little bit anxious about the discharge because of the support she receives here. However, she is looking forward to working with her outpatient providers. She denies depression. She denies SI/HI/AH/VH. She will be discharged in the care of her this morning. Medictions: Venlafaxine ER 75mg Trazodone 100mg qhs schedule Clonidine 0.1mg q4h/qhs continue Lamitcal 25mg daily continue Intunive 1mg daily Status at Discharge Functional status at discharge: independent ambulation Overall status at discharge: patient is back to baseline Time Spent with Patient Time attestation: Total time managing care of this patient today ____ minutes. Time spent: Less than 30 minutes Discharge Plan Discharge Anticipated Discharge Date/Time: 02/17/25 11:30 Patient Disposition: Home, Self-Care Discharge Diagnosis: MDD, recurrent severe, without psychosis, in full remission Referrals: [facility] [Other] - 1 Week Referral Note: Once your insurance starts, call them for a self referral and let them know you have recently discharged from the hospital. [facility] Open Access Walk In [Other] - 1 Week Referral Note: Once your insurance starts, call them for a self referral and let them know you have recently discharged from the hospital. This is a same day walk-in intake for psychiatry and therapy. Walk-in Hours: M-F 10am - 12pm The first appointment is an intake only. It is recommended you get your intake in as soon as possible as there will likely be a wait time between your intake and your first psychiatry and therapy appointments. [facility] [Other] - 1 Week Referral Note: Our [facility] program delivers services as an alternative to hospital emergency departments and psychiatric hospitalization. It also offers respite, outreach, medication management, and peer-level support to ensure that your family member is taken care of on every level. Physician,None [Primary Care Provider, Medical] - 1 Week Referral Note: Pt declined to sign release. Pt to schedule follow up with PCP after discharge. Discharge Medications: New clonidine HCl 0.1 mg Tablet 0.1 mg PO Q4H PRN (Reason: moderate anxiety/insomnia) 30 Days Qty: 90 0RF Protocol: Hold for SBP< HOLD for SBP < : 90 guanfacine 1 mg Tablet Extended Release 24 Hr 1 mg PO DAILY 30 Days Qty: 30 0RF hydroxyzine HCl 25 mg Tablet 25 mg PO Q6H PRN (Reason: mild anxiety) 30 Days Qty: 90 0RF lamotrigine 25 mg Tablet 25 mg PO DAILY 30 Days Qty: 30 0RF trazodone 100 mg Tablet 100 mg PO BEDTIME 30 Days Qty: 30 0RF venlafaxine 75 mg Capsule,Extended Release 24hr 75 mg PO DAILY 30 Days Qty: 30 0RF Discharge Orders: Discharge Order (Routine); Ordered 02/17/25 Ordered By: Rusty Menchaca Diet: Regular diet Activity on Discharge: As tolerated Stand Alone Forms: Patient Portal Discharge page, Community Support Print Language: Portuguese Care Plan Goals: Maintain mood and safe behaviors Take medications as prescribed Continue to pursue sobriety Practice coping skills Continue with outpatient providers and reach out to them as needed Health Concerns: Mood stability and behaviors Sobriety Plan of Treatment: Follow up with your PCP, psychiatric provider and other outpatient providers regarding above concerns Take medications as prescribed Assessment: Risk assessment at time of discharge:? Patient was interviewed prior to discharge and found to be fully oriented and without any SI or HI. Patient has improved insight and judgment and wants to continue treatment. Patient is not in imminent risk of harm to self or others and has a safety plan that includes presenting to the closest ER or calling 911 if feeling unsafe.? Patient has been observed closely by nursing and unit staff throughout admission; patient has not engaged in any behaviors that suggest dangerousness to self or others and has demonstrated appropriate behaviors and impulse control Discharge Date/Time: 02/17/25 11:25
== END 2025-02-17 11:25 | disposition home or self-care (01) | DRG 753 ==
LOC: HO.ED 20:53 → HO.PM5 02-12 17:35
PROVIDERS: Admitting Provider Psychiatry & Neurology Psychiatry; Emergency Provider Emergency Medicine; Visit Provider Psychiatry & Neurology Psychiatry
DX: F31.81 Bipolar II disorder (principal); R45.851 Suicidal ideations; F10.10 Alcohol abuse, uncomplicated; F41.0 Panic disorder [episodic paroxysmal anxiety]; Z91.51 Personal history of suicidal behavior; Z79.899 Other long term (current) drug therapy
CPT/HCPCS: 36415; 80053; 80061; 80143; 80179; 80307; 81001; 81025; 83036; 85025; 99285; S9485

== ENCOUNTER → 2025-02-12 17:18 | Outpatient (BNV) | payer SELFPAY | PROVIDERS: Admitting Provider Psychiatry & Neurology Psychiatry; Emergency Provider Emergency Medicine; Visit Provider Psychiatry & Neurology Psychiatry | DX: F33.2 Major depressive disorder, recurrent severe without psychotic features (principal); F43.11 Post-traumatic stress disorder, acute; F41.0 Panic disorder [episodic paroxysmal anxiety]; F10.10 Alcohol abuse, uncomplicated | CPT/HCPCS: 90792; 99238; 99499 ==

== ENCOUNTER 2025-03-01 12:40 | Emergency (ER) | payer OTHER, SELFPAY ==
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
[2025-03-01 12:52] VITALS: BP 126/92; PULSE 68; O2SAT 99
--- NOTE | 2025-03-01 13:08 | MHC.EDTECH ---
Patient was changed into crisis attire in sales and service change leader room with security, belongings list completed,copy placed in chart, patient has 1 bag and meds were given to Dulce PARSONS. Belongings locked in POD locker #6
[2025-03-01 13:10] VITALS: BP 131/98; PULSE 70; RESP 18; TEMP 36.6; O2SAT 100
[2025-03-01 13:16] VITALS: BP 131/98; PULSE 70; RESP 16; TEMP 36.6; O2SAT 100; BMI 27.5
[2025-03-01 13:47] LABS: Appearance Urine Clear; Glucose Urine UA Negative (Negative); PH 7.5 (5.0-9.0); Specific Gravity - Urine 1.015 (1.005-1.025); UMIC TRIGGER UACC YES
[2025-03-01 13:57] LABS: UACC Culture Trigger YES
[2025-03-01 14:02] LABS: Cannabinoid Screen Urine POSITIVE (Not Detect)
[2025-03-01 14:16] LABS: MANUAL DIFF FLAG NO
[2025-03-01 14:17] LABS: Hematocrit 41.3 % (37.0-47.0); Hemoglobin 13.7 g/dl (12.0-16.0); Imm Gran Abs Auto 0.02 X10*3/uL (0.00-0.03); Imm Gran Pct Auto 0.3 % (0.0-0.4); Lymphocytes Absolute Auto 1.5 X10*3/uL (1.2-4.9); Mean Corpuscular HGB Conc 33.2 g/dl (31.0-35.0); Mean Corpuscular Hemoglobin 30.9 pg (27.0-33.0); Mean Corpuscular Volume 93.0 fL (80.0-98.0); NRBC Abs Auto 0.000 X10*3/uL (0.0-0.012); NRBC Pct Auto 0.0 /100WBC (0.0-0.2); Platelet Count 272 X10*3/uL (160-400); Red Blood Count 4.44 X10*6/uL (4.20-5.50); White Blood Count 7.8 X10*3/uL (4.8-10.8)
[2025-03-01 14:51] LABS: Alanine Aminotransferase 12 U/L (0-31); Albumin Level 3.9 g/dL (3.5-5.0); Alkaline Phosphatase 66 U/L (39-117); Anion Gap 11 (12-20); Aspartate Amino Transferase 20 U/L (5-31); Blood Urea Nitrogen 10 mg/dL (9-16); Calcium 8.7 mg/dL (8.4-10.2); Carbon Dioxide 27 mmol/L (22-29); Chloride 107 mmol/L (96-108); Creatinine Clr Calc Pharmacy 92.1; Estimated Glomerular Filt Rate > 60; Magnesium 1.9 mg/dL (1.6-2.6); Potassium 4.0 mmol/L (3.3-5.1); Sodium 141 mmol/L (135-145); Total Protein 6.5 g/dL (6.5-8.0)
--- OUTSIDE RECORDS SUMMARY | 2025-03-01 15:10 | XMS_ITS | Clinical Summary ---
Author Organization [facility] Address [address] [place] [phone] Phone Care Team Providers Care Dish Maker Name Role Phone Unavailable Primary Care Provider [...] 102 03/19/2017 4:26 PM EDT Temperature 37.1 C (98.8 F) 03/19/2017 4:26 PM EDT Respiratory Rate - - Oxygen Saturation - [...] 10/12/2019 10/11/2009, 10/26/2002, 01/24/1999, Additional history exists COVID-19 Vaccine ( season) 2024 Influenza Vaccines (#1) 2025 04/12/20 15, 03/16/2014, 04/15/2013, Additional history exists Hepatitis B Vaccines Completed 05/25/1998, 1997, 1997 HIB Vaccines Completed 11/15/1998, 02/11, 1997, Additional history exists IPV Vaccines Completed 10/26/2002, 01/11, 1997, Additional history exists MMR Vaccines Completed 10/26/2002, 11/15/1998 HPV Vaccines Completed 05/30/2010, 07/2009, 10/11/2009 Meningococcal Vaccine Completed 02/22/2016, 010 Hepatitis A Vaccines Completed 03/03/2017, 02/19/2017, 02/22/2016 Men B Vaccine Aged Out No longer elig ible based on patient's age to complete this topic Pneumococcal Vaccine Aged Out No long er eligible based on patient's age to complete this topic Procedures * Due to [place] [employer] law, this organization might not be sharing sensitive test results. Procedure Name Priority Date/Time Associated Diagnosis Comments CHLAMYDIA AND GONORRHEA, AMPLIFIED Routine 03/19/2017 5:15 PM EDT test positive from Last 3 Months or Most Recently Relevant to Health Maintenance Results * Due to [place] [employer] law, this organization might not be sharing sensitive test results. * Chlamydia and Gonorrhea, Amplified (03/19/2017 5:15 PM EDT) Chlamydia Trachomatis, DNA Probe NEGATIVE (NEG) [facility] Comment: No Chlamydia Trachomatis RNA detected in this patient's sample (REFERENCE RANGE/NORMAL VALUE: NOT DETECTED) URINE GC AMP PROBE NEGATIVE (NEG) [facility] Comment: No Neisseria Gonorrhoeae RNA detected in this patient's sample (REFERENCE RANGE/NORMAL VALUE: NOT DETECTED) NOTE: This test uses stock preparation operator-mediated amplification method to detect rRNA from C.Trachomatis [...] without risk of sexual abuse. Consult the [facility] if needed. Contact phone number . Therapeutic failure or success cannot be determined with the Aptima Combo2 assay since nucleic acid may persist following appropriate antimicrobial therapy. The Centers for Disease Control and Prevention (CDC) recommends confirmatory retesting using culture or a different nucleic acid amplification test when positive results occur, if indicated. Testing performed or reported by [facility], a Service of [facility], [facility] [place] [address] [facility] [id number] Rafael Taylor MD, PhD, Mine Analyst Urine 03/19/2017 5:15 PM EDT 03/19/2017 10:10 PM EDT us Tatiana Bustillo NP LAB MICROBIOLOGY - GENERAL ORDER LUIGI Final Result [facility] from Last 3 Months or Most Recently Relevant to Health Maintenance Insurance [facility] [place] [facility] [id number]
--- NOTE | 2025-03-01 18:40 | MHC.CARE ---
Patient evaluated by the CARE Team, disposition ACCS. Provider, Dr. Denise kim
--- NOTE | 2025-03-01 19:08 | PC.NURSE ---
This poem writer assumed care of this Pt at 1900. Pt in room laying on bed at this time.
[2025-03-01 20:38] VITALS: BP 138/97; PULSE 75; RESP 16; TEMP 37; O2SAT 100
--- NOTE | 2025-03-01 21:07 | PC.NURSE ---
Pt requesting to leave at this time after speaking on the phone with significant other.
--- NOTE | 2025-03-01 22:17 | MHC.CARE ---
CARE Team notified that Pt was requesting to leave after a phone call with her significant other. Pt gave permission for CARE Team to speak with him. Apparently Pt's significant other was under the impression that she would be back home tonight and was unsure what to do regarding childcare as he works tomorrow morning at 5:45AM. CARE Team met with Pt and it was unclear whether or not she wanted to stay to pursue ACCS LOC or Discharge home. Pt simultaneously expressed wanting to go somewhere she could stay until Friday and wanting to discharge home at some point tomorrow. Discussed with Gerson Tavera MD who met with Pt and did not feel comfortable with discharging Pt at this time due to her level of sedation. Significant other was notified on this and plans to make arrangements. CARE Team to follow-up with Pt in the AM to determine LOC.
[2025-03-02] MEDS: Venlafaxine HCl ER 75 MG CAP.ER.24H PO (09:29)
--- NOTE | 2025-03-02 09:37 | MHC.CARE ---
At this time, patient has declined ACCS. She is requested [facility] follow up and will follow up regarding OP.
[2025-03-02] MEDS: guanFACINE HCl ER 1 MG TAB.ER.24H PO (10:03)
[2025-03-02 10:56] VITALS: BP 137/87; PULSE 63; RESP 16; TEMP 36.2; O2SAT 100
== END 2025-03-02 13:27 | disposition home or self-care (01) ==
PROVIDERS: Emergency Provider Emergency Medicine
DX: F41.9 Anxiety disorder, unspecified (principal); F32.A Depression, unspecified; Z63.0 Problems in relationship with spouse or partner
CPT/HCPCS: 36415; 80048; 80076; 80307; 81001; 83735; 84702; 85025; 87086; 99285; S9485

== ENCOUNTER 2025-03-13 15:05 | Inpatient (IN) | payer OTHER, SELFPAY ==
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
[2025-03-13 15:16] VITALS: BP 130/90; BP 134/83; PULSE 102; PULSE 120; RESP 20; TEMP 37.1; O2SAT 100; O2SAT 98; BMI 25.8
--- NOTE | 2025-03-13 15:26 | PC.NURSE ---
Addendum entered by Keturah Sales RN 03/13/25 18:37: Upon assessment, pt. continues to endorse suicidal ideation, however with no plan or intent. Pt. is a 29 year old, , Mosotho speaking female who looks her stated age. Pt. is AOX4. Eye contact is appropriate and speech is within normal limits. Pt. reports her mood as like a 2 and affect is flat. Pt. reports that sleep and appetite have been okay. Pt. endorses suicidal ideation, with no plan or intent. Pt. denies HI, plan, or intent. Pt. denies A/V/H. Thought process is linear. Insight and judgement appear to be fair at this time as pt. is help seeking. CARE team will re-eval in the morning and possibly go to respite. [ End ] Addendum entered by Keturah Sales RN 03/13/25 15:28: Patient is a 29 yo who presents very tearful and crying with SI with no definitive plan Reports suicidal ideation, depression, and anxiety. Patient reports that she feels hopeless and useless which is causing her to have relationship trouble. She reports a lot of forgetfulness around the house which upsets her and compounds her feelings of inadequacy. She states current SI but has had intermittent passive SI over the past two months but states that it never reached a point of plan or intent. She reports that she is severely depressed everyday and reports anxiety daily which culminates in anxiety attacks which have gotten worse She reports that she has been drinking twice a week 3 to 4 drinks at a time which she feels is heavy and is enough to get her intoxicated. Patient with a history of self harm (cutting). Was recently admitted at the beginning of February for a similar presentation. Original Note: Medical History MDD (major depressive disorder), recurrent severe, without psychosis PTSD (post-traumatic stress disorder)
--- NOTE | 2025-03-13 15:35 | MHC.EDTECH ---
Urine cup provided to patient, patient unable to void, cup at bedside. Patient aware we require a urine sample.
--- OUTSIDE RECORDS SUMMARY | 2025-03-13 15:38 | XMS_ITS | Encounter Summary ---
Author Organization [facility] Address [address] [place] [phone] Phone Care Team Providers Care Brick Setter Operator Name Role Phone Berenice Parra MD Primary Care Provider [phone] Encounter Details Date Type Department Care Team (Late st Contact Info) Description 02/27/2017 Conversion Encounter [facility] [place] [address] [place] [address] Social History Tobacco Use Types Packs/Day Years Used Date Smoking Tobacco: Some Days Comments:Current some day sm oker Comments Unknown Sex and Gender Information Value Date Recorded Sex Assigned at Not on file Legal Sex Female 5:10 PM EDT Gender Identity Not on file Sexual Orientation Not on file documented as of this encounter Plan of Treatment Not on file documented as of this encounter Visit Diagnoses Not on filedocumented in this encounter Care Teams Brick Setter Operator Relationship Specialty Start Date End Date Berenice Parra MD [address] [place] [phone] PCP - General 02/21/17 09/15/19 documented as of this encounter
--- OUTSIDE RECORDS SUMMARY | 2025-03-13 15:38 | XMS_ITS | Encounter Summary ---
Author Organization [facility] Address [address] [place] [phone] Phone Care Team Providers Care Supervisor Green End Department Name Role Phone Berenice Parra MD Primary Care Provider [phone] Encounter Details Date Type Department Care Team (Late st Contact Info) Description 07/25/2016 Documentation [facility] [place] Family Medicine [address] [place] [address] Family Medicine, Physician [address], [place] [id number] Social History Tobacco Use Types Packs/Day Years [...] on filedocumented in this encounter Care Teams Supervisor Green End Department Relationship Specialty Start Date End Date Berenice Parra MD [address] [place] [phone] PCP - General 02/21/17 09/15/19 documented as of this encounter
--- OUTSIDE RECORDS SUMMARY | 2025-03-13 15:38 | XMS_ITS | Clinical Summary ---
Author Organization [facility] Address [address] [place] [phone] Phone Care Team Providers Care Binding Cutter Synthetic Cloth Name Role Phone Unavailable Primary Care Provider [...] complete this topic Procedures * Due to [place] [employer] law, this organization might not be sharing sensitive test results. Procedure Name Priority Date/Time Associated Diagnosis Comments CHLAMYDIA AND GONORRHEA, AMPLIFIED Routine 03/19/2017 5:15 PM EDT test positive from Last 3 Months or Most Recently Relevant to Health Maintenance Results * Due to [place] [employer] law, this organization might not be sharing sensitive test results. * Chlamydia and Gonorrhea, Amplified (03/19/2017 5:15 PM EDT) Chlamydia Trachomatis, DNA Probe NEGATIVE (NEG) [facility] Comment: No Chlamydia Trachomatis RNA detected in this patient's sample (REFERENCE RANGE/NORMAL VALUE: NOT DETECTED) URINE GC AMP PROBE NEGATIVE (NEG) [facility] Comment: No Neisseria Gonorrhoeae RNA detected in this patient's sample (REFERENCE RANGE/NORMAL VALUE: NOT DETECTED) NOTE: This test uses health information managers-mediated amplification method to detect rRNA from C.Trachomatis [...] without risk of sexual abuse. Consult the [facility] if needed. Contact phone number . Therapeutic failure or success cannot be determined with the Aptima Combo2 assay since nucleic acid may persist following appropriate antimicrobial therapy. The Centers for Disease Control and Prevention (CDC) recommends confirmatory retesting using culture or a different nucleic acid amplification test when positive results occur, if indicated. Testing performed or reported by [facility], a Service of [facility], [facility] [place] [address] [facility] [id number] Rafael Taylor MD, PhD, Heavy Duty Truck Mechanic Urine 03/19/2017 5:15 PM EDT 03/19/2017 10:10 PM EDT us Tatiana Bustillo NP LAB MICROBIOLOGY - GENERAL ORDER LUIGI Final Result [facility] from Last 3 Months or Most Recently Relevant to Health Maintenance Insurance [facility] [place] [facility] [place] [id number]
[2025-03-13 16:24] LABS: MANUAL DIFF FLAG NO
[2025-03-13 16:27] LABS: Hematocrit 40.0 % (37.0-47.0); Hemoglobin 13.8 g/dl (12.0-16.0); Imm Gran Abs Auto 0.04 X10*3/uL (0.00-0.03); Imm Gran Pct Auto 0.4 % (0.0-0.4); Lymphocytes Absolute Auto 1.6 X10*3/uL (1.2-4.9); Mean Corpuscular HGB Conc 34.5 g/dl (31.0-35.0); Mean Corpuscular Hemoglobin 30.5 pg (27.0-33.0); Mean Corpuscular Volume 88.5 fL (80.0-98.0); NRBC Abs Auto 0.000 X10*3/uL (0.0-0.012); NRBC Pct Auto 0.0 /100WBC (0.0-0.2); Platelet Count 265 X10*3/uL (160-400); Red Blood Count 4.52 X10*6/uL (4.20-5.50); White Blood Count 9.4 X10*3/uL (4.8-10.8)
[2025-03-13 16:43] LABS: Acetaminophen LAB < 3 mcg/mL (<30); Alanine Aminotransferase 10 U/L (0-31); Albumin Level 4.1 g/dL (3.5-5.0); Alkaline Phosphatase 75 U/L (39-117); Anion Gap 15 (12-20); Aspartate Amino Transferase 22 U/L (5-31); Blood Urea Nitrogen 10 mg/dL (9-16); Calcium 8.8 mg/dL (8.4-10.2); Carbon Dioxide 22 mmol/L (22-29); Chloride 108 mmol/L (96-108); Creatinine Clr Calc Pharmacy 105.1; Estimated Glomerular Filt Rate > 60; Magnesium 2.0 mg/dL (1.6-2.6); Potassium 3.4 mmol/L (3.3-5.1); Salicylate < 5.0 mg/dL (15-30); Sodium 142 mmol/L (135-145); Total Protein 6.8 g/dL (6.5-8.0)
[2025-03-13 16:55] LABS: Appearance Urine Clear; Glucose Urine UA Negative (Negative); PH 5.5 (5.0-9.0); Specific Gravity - Urine 1.025 (1.005-1.025); UMIC TRIGGER UACC YES
[2025-03-13 17:03] LABS: Cannabinoid Screen Urine POSITIVE (Not Detect)
[2025-03-13 17:58] LABS: UACC Culture Trigger YES
--- NOTE | 2025-03-14 09:20 | MHC.CARE ---
Pt will be an inpatient bedsearch
[2025-03-14] MEDS: Venlafaxine HCl ER 75 MG CAP.ER.24H PO (09:25)
[2025-03-14] MEDS: guanFACINE HCl ER 1 MG TAB.ER.24H PO (09:48)
--- NOTE | 2025-03-14 10:19 | PC.NURSE ---
Assumed care and report received. Pt is quiet and sleeps throughout the shift. she is compliant with breakfast and meds, she asks for a PRN for anxiety and reports good effect. She reports passive SI and just feels really down.
--- NOTE | 2025-03-14 11:34 | PC.NURSE ---
Pt reporting increased anxiety after phone call with , pt medicated with Clonidine 0.1mg
[2025-03-14 11:54] VITALS: PULSE 81; RESP 14; O2SAT 98
--- NOTE | 2025-03-14 12:22 | PC.NURSE ---
Pts came to visit, pt initially tearful, unsure if she wanted him to visit, pt did agree to shortened visit with him. Upon visitor arrival, pt appeared extremely tearful and upset, when this RN asked if visit should be terminated, pt declined stating no, I think we are okay right now . continued to appear to make patient uncomfortable making statements such as you keep on doing this and leaving me to deal with the kids, pretty soon I am just gonna have DCF take them your parents aren't going to want to deal with this, they won't take you in . Pts visitor was escorted out by staff. This RN spoke with patient who stated she feels like her is lying to her and causing more problems than need be. This RN validated patients feelings and explained that she does not have to have her visit. pt currently visiting with her mom per her request. Appears more comfortable. Pt requesting additional anxiety medication due to the upsetting nature of her conversation with her
--- NOTE | 2025-03-14 14:38 | PHA.MEDREC ---
Pharmacy Consult ? Medication Reconciliation Pharmacy has completed the medication reconciliation. Reviewed med rec done by nursing
--- NOTE | 2025-03-14 18:30 | PC.NURSE ---
Pt has remained quiet and isolative throughout the shift, she has had a visit from her and has called multiple times. She reports alot of stress from him and has asked to not talk to him.
[2025-03-14 18:34] VITALS: PULSE 69; RESP 16; O2SAT 99
--- NOTE | 2025-03-15 05:29 | PC.NURSE ---
pt medicated per mar.
--- NOTE | 2025-03-15 07:30 | PC.NURSE ---
Assumed care, report received. Pt is currently sleeping at this time. Safety maintained.
[2025-03-15] MEDS: guanFACINE HCl ER 1 MG TAB.ER.24H PO (09:33)
[2025-03-15] MEDS: Venlafaxine HCl ER 75 MG CAP.ER.24H PO (09:33)
--- NOTE | 2025-03-15 10:11 | ECG_ITS ---
Test Reason : MED CLEARANCE Blood Pressure : */* mmHG Vent. Rate : 73 BPM Atrial Rate : 73 BPM P-R Int : 178 ms QRS Dur : 82 ms QT Int : 382 ms P-R-T Axes : 24 9 16 degrees QTcB Int : 420 ms Normal sinus rhythm Normal ECG No previous ECGs available Referred By: Leyla Walker Electronically Signed By: Raymundo Burden
[2025-03-15 10:48] VITALS: BP 106/72; PULSE 81; RESP 16; TEMP 37.2; O2SAT 99
--- NOTE | 2025-03-15 13:25 | PC.NURSE ---
Pt spoke on phone with DCF worker, reporting mild anxiety
[2025-03-15 14:40] VITALS: BP 113/83; PULSE 80; TEMP 36.9; O2SAT 98
[2025-03-15 15:43] VITALS: BMI 25.8
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
[2025-03-15 22:49] VITALS: BP 108/55; PULSE 70; RESP 16; TEMP 36.9; O2SAT 99
[2025-03-16 08:00] VITALS: BP 105/64; PULSE 71; RESP 16; TEMP 36.4; O2SAT 99
[2025-03-16] MEDS: Venlafaxine HCl ER 75 MG CAP.ER.24H PO (09:05)
[2025-03-16] MEDS: guanFACINE HCl ER 1 MG TAB.ER.24H PO (09:05)
[2025-03-16 09:10] VITALS: BP 105/64
[2025-03-16 09:28] LABS: Hemoglobin A1C 98.2123 umol/L; Total Hemoglobin (HGBA1C) 3559.2001 umol/L
[2025-03-16 09:44] LABS: Cholesterol 139 mg/dL (<200); HDL Cholesterol 37 mg/dL (>40); Magnesium 2.1 mg/dL (1.6-2.6); Triglycerides 87 mg/dL (<150)
[2025-03-16 09:53] LABS: Free T4 (Free Thyroxine) 1.00 ng/dL (0.71-1.85); Thyroid Stimulating Hormone 0.29 uIU/mL (0.32-4.0)
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
[2025-03-16 10:07] LABS: Folate 12.1 ng/mL (> or = 4.0); Vitamin B12 687 pg/mL (200-900)
[2025-03-16 20:00] VITALS: BP 128/68; PULSE 91; RESP 18; TEMP 36.6; O2SAT 97
[2025-03-16 21:44] VITALS: BP 128/98
[2025-03-17 07:00] VITALS: BMI 23.0
[2025-03-17 09:03] VITALS: BP 101/55; PULSE 79; RESP 16; TEMP 36.8; O2SAT 98
[2025-03-17] MEDS: Venlafaxine HCl ER 75 MG CAP.ER.24H PO (09:07)
[2025-03-17] MEDS: guanFACINE HCl ER 1 MG TAB.ER.24H PO (09:07)
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
[2025-03-17 20:00] VITALS: BP 116/70; PULSE 67; RESP 16; TEMP 36.9; O2SAT 98
[2025-03-17 21:36] VITALS: BP 116/70
[2025-03-18 09:06] VITALS: BP 106/58
[2025-03-18] MEDS: Venlafaxine HCl ER 75 MG CAP.ER.24H PO (09:07)
[2025-03-18] MEDS: guanFACINE HCl ER 1 MG TAB.ER.24H PO (09:07)
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
== END 2025-03-18 11:05 | disposition home or self-care (01) | DRG 751 ==
LOC: HO.ED 15:35 → HO.PM5 03-15 13:34
PROVIDERS: Physician Assistant; Admitting Provider Clinical Nurse Specialist Psychiatric/Mental Health, Adult; Emergency Provider Emergency Medicine; Visit Provider Clinical Nurse Specialist Psychiatric/Mental Health, Adult
DX: F33.2 Major depressive disorder, recurrent severe without psychotic features (principal); R45.851 Suicidal ideations; F17.210 Nicotine dependence, cigarettes, uncomplicated; F43.10 Post-traumatic stress disorder, unspecified; Z71.6 Tobacco abuse counseling; Z79.899 Other long term (current) drug therapy
CPT/HCPCS: 36415; 80053; 80061; 80143; 80179; 80307; 81001; 81003; 82607; 82746; 83036; 83735; 84439; 84443; 84702; 85025; 87086; 93005; 99285; S9485

== ENCOUNTER → 2025-03-15 10:11 | Outpatient (BNV) | payer OTHER, SELFPAY | PROVIDERS: Admitting Provider Clinical Nurse Specialist Psychiatric/Mental Health, Adult; Emergency Provider Emergency Medicine; Visit Provider Internal Medicine Cardiovascular Disease | DX: R94.31 Abnormal electrocardiogram [ECG] [EKG] (principal) | CPT/HCPCS: 93010 ==

== ENCOUNTER → 2025-03-15 13:18 | Outpatient (BNV) | payer OTHER, SELFPAY | PROVIDERS: Admitting Provider Clinical Nurse Specialist Psychiatric/Mental Health, Adult; Emergency Provider Emergency Medicine; Visit Provider Psychiatry & Neurology Psychiatry | DX: F33.2 Major depressive disorder, recurrent severe without psychotic features (principal); F43.11 Post-traumatic stress disorder, acute | CPT/HCPCS: 99231; 99232 ==

== ENCOUNTER 2025-04-23 11:21 | Emergency (ER) | payer OTHER, SELFPAY ==
[2025-04-23 11:27] VITALS: BP 152/97; PULSE 98; RESP 18; TEMP 36.3; O2SAT 98; BMI 35.8
--- NOTE | 2025-04-23 11:31 | ED_ITS ---
HPI - Dental/Oral General Chief complaint: Dental/Oral Stated complaint: dental pain Time Seen by Provider: 04/23/25 11:31 Source: patient Mode of arrival: ambulatory Limitations: no limitations History of Present Illness ED Provider: DARY OGLESBY PA-C HPI Narrative: 29 year old female presents to the ED today for evaluation of dental pain x2 weeks. Reports pain to right lower molar where she has a cracked tooth. Pain radiates to jaw and up into her head. Reports shooting pain. Admits to decreased PO intake secondary to pain along with subjective fever. She has been taking Tylenol without relief. Last dose last night. Denies any drainage from the tooth, dysphagia. Reports contacting her dentist who advised she come to the ED today. MD Complaint: tooth pain Teeth map: 2 1. Onset (ago): week(s) (2) Duration: constant Severity: moderate Relieving factors: nothing Exacerbating factors: chewing Context: history of dental caries and poor dental care Associated symptoms: fever and gum swelling Treatment prior to arrival: none Related Data Previous Rx's ?Medication ?Instructions ?Recorded clonidine HCl 0.1 mg tablet 0.1 mg PO BEDTIME #30 tabs 03/17/25 clonidine HCl 0.1 mg tablet 0.1 mg PO Q4H PRN moderate 03/17/25 anxiety/insomnia #90 tabs guanfacine 1 mg tablet,extended 1 mg PO DAILY #30 tabs 03/17/25 release 24 hr hydroxyzine HCl 25 mg tablet 25 mg PO Q6H PRN mild anx iety #90 03/17/25 tabs lamotrigine 25 mg tablet 50 mg (2 x 25 mg) PO DAILY # 30 tabs 03/17/25 trazodone 100 mg tablet 100 mg PO BEDTIME #30 tabs 0 03/17/25 venlafaxine 75 mg capsule,extended 75 mg PO DAILY #30 caps 03/17/25 release 24 hr clonidine HCl 0.1 mg tablet 0.1 mg PO Q4H PRN moderate anxiety 04/20/25 30 days #90 tabs guanfacine 1 mg tablet,extended 1 mg PO DAILY 30 days #30 tabs 04/20/25 release 24 hr (Intuniv ER) lamotrigine 25 mg tablet (Lamictal) 50 mg (2 x 25 mg) PO DAILY 30 days 04/20/25 #60 tabs trazodone 100 mg tablet 100 mg PO BEDTIME PRN insomn ia 30 04/20/25 days #30 tabs venlafaxine 75 mg capsule,extended 75 mg PO DAILY 30 d ays #30 caps 04/20/25 release 24 hr amoxicillin 875 mg-potassium 1 tab PO Q12H 10 days #20 tabs 04/23/25 clavulanate 125 mg tablet morphine 15 mg tablet,extended 15 mg PO Q8H 3 days #9 tabs 04/23/25 release Allergies Allergy/AdvReac Type Severity Reaction Status Date / Time No Known Allergies Allergy Verified 04/23/25 11:28 Review of Systems 2 Review of Systems: Constitutional: No fever, chills, fatigue, night sweats, weight changes ENT/Mouth: No ear pain, hearing loss, nasal congestion, sinus pain, rhinorrhea, sore throat, +dental pain Eyes: No eye pain, swelling, redness, vision changes, discharge Cardio: No chest pain, palpitations, GORMAN, orthopnea, peripheral edema Pulm: No SOB, cough, sputum, wheezing, dyspnea, hemoptysis GI: No nausea, vomiting, hematemesis, abdominal pain, diarrhea, constipation, hematochezia, melena : No irregular bleeding, dysuria, frequency, urgency, hesitancy, hematuria, flank pain, urinary flow changes, urinary incontinence or retention MSK: No back pain, neck pain, joint pain, myalgias Skin: No lesions, rashes Neuro: No weakness, numbness, paresthesias, LOC, dizziness, headache Psych: No anxiety/panic, depression, SI/HI, AH/VH All other systems reviewed and are negative. [facility] [place] Past Medical History Attestation statement: The following information was validated with the patient. Source: old records reviewed and nursing notes reviewed Medical History MDD (major depressive disorder), recurrent severe, without psychosis PTSD (post-traumatic stress disorder) Social History Social History Household Members: Significant Other and Children Housing: Apartment Do you presently have visiting nurse or other home services: No Alcohol intake: current Alcohol intake frequency: holidays/special occasions only Patient Tobacco Use Status: Current someday Tobacco user e-Cigarette/Vaping Use: Currently Using Second Hand Smoke Exposure: No Substance Use Type: Marijuana service: No Sexual orientation: Straight/Heterosexual Physical Exam 2 Vital Signs: Vital Signs: Last Vital Signs Temp 97.4 F 04/23/25 11:27 Pulse 98 04/23/25 11:27 Resp 18 04/23/25 11:27 BP 152/97 H 04/23/25 11:27 Pulse Ox 98 04/23/25 11:27 O2 Del Method Room Air 04/23/25 11:27 BMI result Body Mass Index 35.8 Vital signs stable, afebrile. Const: General: cooperative, comfortable and no acute distress O rientation/consciousness: patient oriented x3 Limitations: no limitations HEENT: Other: + No facial edema. Tongue and lips wnl + multiple dental caries and poor dentit ion. right lower molar with localized periapical swelling to the buccal ginginva. No pointing. No active bleeding/ discharge. TTP. No palpable fluctuance. + No edema to buccal mucosa + Posterior oropharynx without erythema/ edema. Uvula midline. Controlling secretions and speaking in complete sentences + No submandublar or submental LAD + No cervical LAD, no anterior neck swel ling Head: Yes normal to inspection, Yes No palpable skull fracture present, Yes normocephalic and Yes atraumatic Ears: hearing grossly normal bilaterally, external ears normal, TM's normal bilaterally, EAC's normal, mastoids normal and no periauricular adenopathy Eyes: General: appearance normal, both eyes and all related structures C onjunctivae: conjunctivae normal Sclerae: sclerae normal Pupils: Equal, round and reactive pupils present Neck: Neck: Yes normal visual inspection and Yes no lymphadenopathy Resp: Effort & Inspection: normal respiratory effort and no stridor A uscultation: clear to auscultation bilaterally Cardio: Rate: regular rate Rhythm: regular rhythm Skin: General skin exam: no rashes or lesions noted Neuro: General: patient oriented x3 and gait normal Cranial nerves: Yes Equal, round and reactive pupils present Course Course Course Narrative: Patient noted to have dental infection. There is no evidence of abscess that warrants drainage at this time. Will treat patient's pain and patient will be discharged home on augmentin to ensure there is no worsening infection for follow-up with dentist. morphine sent for break through pain control. Patient advised to follow up with dentist this week. A referral has been provided. Patient has remained stable throughout ED visit today. I discussed worrisome signs and symptoms and when to return to the ED. All questions answered at this time. Patient is agreeable with disposition and stable for discharge. Medical Decision Making Medical Decision Making MDM Narrative: 29 year old female presents to the ED today for evaluation of dental pain x2 weeks. hypertensive, afebrile. she is generally well appearing and in NAD. on exam, multiple dental caries and poor dentition. right lower molar with localized periapical swelling to the buccal ginginva. No pointing. No active bleeding/ discharge. TTP. No palpable fluctuance. no LAD, no anterior neck swelling. Differential includes dental/ periapical abscess/infection. Unlikely mono, herpes, sialadenitis, sialolithiasis, INFORMATION SECURITY SPECIALIST, retropharyngeal abscess, deep neck infection, osteomyelitis, facial cellulitis/ abscess, lymphom, ludwigs angina. Plan for pain control and discharge home with antibiotics + dentist follow up. Differential Diagnosis Differential Diagnoses: The differential diagnosis associated with the presentation includes as above. Admission/Observation Not indicated. Tests considered The following testing was considered but not selected: I considered obtaining a CT of the soft tissues neck however these is no evidence of ludwigs angina or concern for deep tissue infection. Not warranted at this time. Prescription Management I considered prescription management with: Pain Medication (morphine) and Antibiotic (augmentin) Social Determinants Patient?s care significantly limited by Social Determinants of Health including: Other Social Determinant of Health Critical Care Time Critical Care Time Critical Care Time: No Discharge Plan Discharge Clinical Impression: Dental infection, Toothache Patient Disposition: Home, Self-Care Instructions: Dental Abscess (ED), Toothache (ED) Additional Instructions: You were evaluated in ED today for dental pain. You have a dental infection. Augmentin is an antibiotic that has been sent to your pharmacy for treatment. Take this as prescribed and do not skip any doses. Take this to completion or the infection may persist or worsen. On Augmentin, softer bowel movements are to be expected. Call your provider if you move your bowels more than 4 times a day, your bowel movements are almost all liquid, or you get a rash.? Take tylenol/ motrin at home as needed for pain. I am sending morphine, a controlled pain medication, to your pharmacy for you to take for breakthrough pain control. Please use this with caution as opioid pain medications have addictive properties. YOU NEED TO FOLLOW UP WITH A DENTIST. You have been provided with a referral to [facility]. They are currently taking new clients. Call them to make an appointment. They will not call you. Return with new or worsening symptoms. In the case of an emergency call 911. [facility]: [phone] [address] [facility] [id number] Prescriptions: New amoxicillin-pot clavulanate 875-125 mg tablet 1 tab PO Q12H 10 Days Qty: 20 0RF morphine 15 mg tablet extended release 15 mg PO Q8H 3 Days Qty: 9 0RF Rx Instructions: Partial Fill upon patient request. No Action clonidine HCl 0.1 mg Tablet 0.1 mg PO Q4H PRN (Reason: moderate anxiety/insomnia) Qty: 90 0RF Protocol: Hold for SBP< HOLD for SBP < : 90 clonidine HCl 0.1 mg Tablet 0.1 mg PO BEDTIME Qty: 30 0RF Protocol: Hold for SBP< HOLD for SBP < : 90 lamotrigine 25 mg Tablet 50 mg PO DAILY Qty: 30 0RF hydroxyzine HCl 25 mg Tablet 25 mg PO Q6H PRN (Reason: mild anxiety) Qty: 90 0RF guanfacine 1 mg Tablet Extended Release 24 Hr 1 mg PO DAILY Qty: 30 0RF venlafaxine 75 mg Capsule,Extended Release 24hr 75 mg PO DAILY Qty: 30 0RF trazodone 100 mg Tablet 100 mg PO BEDTIME Qty: 30 0RF lamotrigine [Lamictal] 25 mg tablet 50 mg PO DAILY 30 Days Qty: 60 0RF guanfacine [Intuniv ER] 1 mg tablet extended release 24 hr 1 mg PO DAILY 30 Days Qty: 30 0RF venlafaxine 75 mg capsule,extended release 24hr 75 mg PO DAILY 30 Days Qty: 30 0RF trazodone 100 mg tablet 100 mg PO BEDTIME PRN (Reason: insomnia) 30 Days Qty: 30 0RF clonidine HCl 0.1 mg tablet 0.1 mg PO Q4H PRN (Reason: moderate anxiety) 30 Days Qty: 90 0RF Referrals: Physician,None [Primary Care Provider, Medical] Print Language: [place] Islander
[2025-04-23 11:39] VITALS: BP 152/97; PULSE 98; RESP 18; TEMP 36.3; O2SAT 98
--- OUTSIDE RECORDS SUMMARY | 2025-04-23 11:39 | XMS_ITS | Clinical Summary ---
Author Organization [facility] Address [address] [place] [id number] Phone Care Team Providers Care Climate Change Risk Assessor Name Role Phone Unavailable Primary Care Provider [...] 01/24/1999, Additional history exists Influenza Vaccines (#1) 2025 04/12/20 15, 03/16/2014, 04/15/2013, Additional history exists COVID-19 Vaccine ( season) 2025 Hepatitis B Vaccines Completed 05/25/1998, 1997, 1997 [...] complete this topic Procedures * Due to [place] Fashiontrot law, this organization might not be sharing sensitive test results. Procedure Name Priority Date/Time Associated Diagnosis Comments CHLAMYDIA AND GONORRHEA, AMPLIFIED Routine 03/19/2017 5:15 PM EDT test positive from Last 3 Months or Most Recently Relevant to Health Maintenance Results * Due to [place] Fashiontrot law, this organization might not be sharing sensitive test results. * Chlamydia and Gonorrhea, Amplified (03/19/2017 5:15 PM EDT) Chlamydia Trachomatis, DNA Probe NEGATIVE (NEG) [facility] Comment: No Chlamydia Trachomatis RNA detected in this patient's sample (REFERENCE RANGE/NORMAL VALUE: NOT DETECTED) URINE GC AMP PROBE NEGATIVE (NEG) [facility] Comment: No Neisseria Gonorrhoeae RNA detected in this patient's sample (REFERENCE RANGE/NORMAL VALUE: NOT DETECTED) NOTE: This test uses grain scooper-mediated amplification method to detect rRNA from C.Trachomatis [...] without risk of sexual abuse. Consult the [facility] if needed. Contact phone number . Therapeutic failure or success cannot be determined with the Aptima Combo2 assay since nucleic acid may persist following appropriate antimicrobial therapy. The Centers for Disease Control and Prevention (CDC) recommends confirmatory retesting using culture or a different nucleic acid amplification test when positive results occur, if indicated. Testing performed or reported by [facility], a Service of [facility], [facility] [place] [address] [facility] [id number] Rafael Taylor MD, PhD, Regional Marketing Manager Urine 03/19/2017 5:15 PM EDT 03/19/2017 10:10 PM EDT us Tatiana Bustillo NP LAB MICROBIOLOGY - GENERAL ORDER LUIGI Final Result [facility] from Last 3 Months or Most Recently Relevant to Health Maintenance Insurance [facility] [place] [place] [id number]
--- OUTSIDE RECORDS SUMMARY | 2025-04-23 11:39 | XMS_ITS | Encounter Summary ---
Author Organization [facility] Address [address] [place] [phone] Phone Care Team Providers Care Inventory Control Planner Name Role Phone Berenice Parra MD Primary Care Provider [phone] Encounter Details Date Type Department Care Team (Late st Contact Info) Description 07/25/2016 Documentation [facility] [place] [facility] [address] [place] [address] Family Medicine, Physician [address], [place] [phone] Social History Tobacco Use Types Packs/Day Years [...] on filedocumented in this encounter Care Teams Inventory Control Planner Relationship Specialty Start Date End Date Berenice Parra MD [address] [place] [id number] PCP - General 02/21/17 09/15/19 documented as of this encounter
--- OUTSIDE RECORDS SUMMARY | 2025-04-23 11:39 | XMS_ITS | Encounter Summary ---
Author Organization [facility] Address [address] [place] [address] Phone Care Team Providers Care Wash Oil Cooler Operator Name Role Phone Berenice Parra MD Primary Care Provider [phone] Encounter Details Date Type Department Care Team (Late st Contact Info) Description 02/27/2017 Conversion Encounter [facility] [place] [address] [place] [address] Social History Tobacco Use Types Packs/Day Years [...] on filedocumented in this encounter Care Teams Wash Oil Cooler Operator Relationship Specialty Start Date End Date Berenice Parra MD [address] [place] [id number] PCP - General 02/21/17 09/15/19 documented as of this encounter
== END 2025-04-23 11:42 | disposition home or self-care (01) ==
PROVIDERS: Emergency Provider Emergency Medicine
DX: K04.7 Periapical abscess without sinus (principal); K03.81 Cracked tooth
CPT/HCPCS: 96372; 99283; 99284; J1885

== ENCOUNTER 2025-04-24 13:17 | Emergency (ER) | payer OTHER, SELFPAY ==
--- NOTE | ~2025-04-24 | CT_ITS ---
CLINICAL HISTORY: Dental abscess CT maxillofacial with contrast Comparison: None provided Findings: No acute fractures. No dislocations. Temporomandibular joints are intact. Mucosal thickening of the left maxillary sinus. Orbital contents within normal limits. Visualized intracranial contents are within normal limits. No foreign bodies. Cavity of a right lower molar tooth. No evidence of soft tissue abscess. There are reactive cervical lymph nodes. IMPRESSION: No soft tissue abscess is noted. This document has been electronically signed by: Fabienne Mcbride MD on 04/24/2025 18:07:42
[2025-04-24 13:37] VITALS: BP 138/97; PULSE 92; RESP 20; TEMP 36.4; O2SAT 100; BMI 32.1
--- NOTE | 2025-04-24 13:37 | ED_ITS ---
HPI - General Adult General Chief complaint: Dental/Oral Stated complaint: toothache seen t-1. swollen face, sob, pain 10+ Time Seen by Provider: 04/24/25 16:07 Related Data Previous Rx's ?Medication ?Instructions ?Recorded clonidine HCl 0.1 mg tablet 0.1 mg PO BEDTIME #30 tabs 03/17/25 clonidine HCl 0.1 mg tablet 0.1 mg PO Q4H PRN moderate 03/17/25 anxiety/insomnia #90 tabs guanfacine 1 mg tablet,extended 1 mg PO DAILY #30 tabs 03/17/25 release 24 hr hydroxyzine HCl 25 mg tablet 25 mg PO Q6H PRN mild anx iety #90 03/17/25 tabs lamotrigine 25 mg tablet 50 mg (2 x 25 mg) PO DAILY # 30 tabs 03/17/25 trazodone 100 mg tablet 100 mg PO BEDTIME #30 tabs 0 03/17/25 venlafaxine 75 mg capsule,extended 75 mg PO DAILY #30 caps 03/17/25 release 24 hr clonidine HCl 0.1 mg tablet 0.1 mg PO Q4H PRN moderate anxiety 04/20/25 30 days #90 tabs guanfacine 1 mg tablet,extended 1 mg PO DAILY 30 days #30 tabs 04/20/25 release 24 hr (Intuniv ER) lamotrigine 25 mg tablet (Lamictal) 50 mg (2 x 25 mg) PO DAILY 30 days 04/20/25 #60 tabs trazodone 100 mg tablet 100 mg PO BEDTIME PRN insomn ia 30 04/20/25 days #30 tabs venlafaxine 75 mg capsule,extended 75 mg PO DAILY 30 d ays #30 caps 04/20/25 release 24 hr amoxicillin 875 mg-potassium 1 tab PO Q12H 10 days #20 tabs 04/23/25 clavulanate 125 mg tablet morphine 15 mg tablet,extended 15 mg PO Q8H 3 days #9 tabs 04/23/25 release oxycodone 5 mg capsule 5 mg PO Q8H PRN pain 4 days #14 04/24/25 caps Allergies Allergy/AdvReac Type Severity Reaction Status Date / Time latex Allergy Unknown Verified 04/24/25 13:39 [facility] Past Medical History Medical History MDD (major depressive disorder), recurrent severe, without psychosis PTSD (post-traumatic stress disorder) Social History Social History Household Members: Significant Other and Children Housing: Apartment Do you presently have visiting nurse or other home services: No Alcohol intake: current Alcohol intake frequency: holidays/special occasions only Patient Tobacco Use Status: Current someday Tobacco user e-Cigarette/Vaping Use: Currently Using Second Hand Smoke Exposure: No Substance Use Type: Marijuana service: No Sexual orientation: Straight/Heterosexual Physical Exam ED Vital Signs: Vital Signs - 24 hr 04/24/25 13:37 04/24/25 15:42 04/24/25 19:47 Temperature 97.5 F 98 F 98.5 F Pulse Rate 92 88 96 Respiratory Rate 20 19 20 Blood Pressure 138/97 H 134/88 138/90 H Pulse Oximetry 100 99 98 Oxygen Delivery Method Room Air Room Air Room Air 04/24/25 19:51 Temperature 98.5 F Pulse Rate 96 Respiratory Rate 20 Blood Pressure 138/90 H Pulse Oximetry 98 Oxygen Delivery Method Room Air BMI result Body Mass Index 32.1 Course Course Course Narrative: Rapid medical examination performed in triage by Nivia Stout PA-C. Patient is a 29 year old assigned female at presenting to the emergency department with dental pain, difficulty speaking secondary to pain, and dizziness. Patient states she was seen yesterday for a dental infection and things have gotten worse. Detailed physical exam and review of systems are deferred to the adjunct latin professor. Labs ordered. Patient placed back in the waiting room pending room availability and results. Medications Administered Discontinued Medications Generic Name Dose Route Start Last Admin Trade Name Freq PRN Reason Stop Dose Admin Acetaminophen 975 mg 04/24/25 16:26 04/24/25 16:33 Acetaminophen 325 Mg Tablet PO 04/24/25 16:27 975 mg ONCE ONE Administration Iohexol 100 ml 04/24/25 16:50 04/24/25 16:51 Iohexol 350 Mg/Ml 100 Ml Infus..Btl IV 04/24/25 16:51 75 ml ONCE ONE Administration Oxycodone HCl 5 mg 04/24/25 16:26 04/24/25 16:33 Oxycodone Hcl Immed Release 5 Mg Tablet PO 04/24/25 16:27 5 mg ONCE ONE Administration Oxycodone HCl 5 mg 04/24/25 19:46 04/24/25 19:49 Oxycodone Hcl Immed Release 5 Mg Tablet PO 04/24/25 19:47 5 mg ONCE ONE Administration Medical Decision Making Lab Data 04/24/25 13:55 04/24/25 13:55 Labs: Lab Results 04/24/25 Range/Units 13:55 WBC 9.3 (4.8-10.8) X10*3/uL RBC 4.41 (4.20-5.50) X10*6/uL Hgb 13.3 (12.0-16.0) g/dl Hct 40.1 (37.0-47.0) % MCV 90.9 (80.0-98.0) fL MCH 30.2 (27.0-33.0) pg MCHC 33.2 (31.0-35.0) g/dl RDW 14.5 (11.0-16.0) % Plt Count 262 (160-400) X10*3/uL MPV 9.1 L (9.4-12.3) fL Immature Gran % (Auto) 0.3 (0.0-0.4) % Neut % (Auto) 80.5 H (45-73) % Lymph % (Auto) 9.4 L (20-40) % Mccone % (Auto) 6.0 (2-11) % Eos % (Auto) 3.0 (0-4) % Baso % (Auto) 0.8 (0-2) % Lymph # (Auto) 0.9 L (1.2-4.9) X10*3/uL Mccone # (Auto) 0.6 (0.1-1.2) X10*3/uL Eos # (Auto) 0.3 (0.0-0.4) X10*3/uL Baso # (Auto) 0.1 (0.0-0.2) X10*3/uL Abs Immat Gran (auto) 0.03 (0.00-0.03) X10*3/uL Absolute Neuts (auto) 7.5 (2.0-8.3) x10*3/uL Absolute Nucleated RBC 0.000 (0.0-0.012) X10*3/uL Nucleated RBC % (auto) 0.0 (0.0-0.2) /100WBC ESR 5 (0-20) MM/HR Sodium 142 (135-145) mmol/L Potassium 3.6 (3.3-5.1) mmol/L Chloride 110 H (96-108) mmol/L Carbon Dioxide 24 (22-29) mmol/L Anion Gap 12 (12-20) BUN 10 (9-16) mg/dL Creatinine 0.76 (0.5-1.4) mg/dL Estim Creat Clear Calc 134.6 Estimated GFR > 60 Random Glucose 94 (60-115) mg/dL Calcium 8.9 (8.4-10.2) mg/dL Total Bilirubin 0.6 (0.0-1.0) mg/dL AST 25 (5-31) U/L ALT 12 (0-31) U/L Alkaline Phosphatase 62 (39-117) U/L C-Reactive Protein 0.43 (< or = 0.50) mg/dL Total Protein 6.9 (6.5-8.0) g/dL Albumin 4.4 (3.5-5.0) g/dL Beta-Hydroxybutyrate 0.16 (0.02-0.27) mmol/L Beta HCG, Quant < 2 mIU/mL COVID-19 (GUERRERO) Negative (Negative) COVID-19 Clin Com See Note Influenza Type A (UNIQUE) Negative (Negative) Influenza Type B (UNIQUE) Negative (Negative) Influenza A & B Note See Note Discharge Plan Discharge Clinical Impression: Dental caries Patient Disposition: Home, Self-Care Prescriptions: New oxycodone 5 mg capsule 5 mg PO Q8H PRN (Reason: pain) 4 Days Qty: 14 0RF Rx Instructions: Partial Fill upon patient request. No Action clonidine HCl 0.1 mg Tablet 0.1 mg PO Q4H PRN (Reason: moderate anxiety/insomnia) Qty: 90 0RF Protocol: Hold for SBP< HOLD for SBP < : 90 clonidine HCl 0.1 mg Tablet 0.1 mg PO BEDTIME Qty: 30 0RF Protocol: Hold for SBP< HOLD for SBP < : 90 lamotrigine 25 mg Tablet 50 mg PO DAILY Qty: 30 0RF hydroxyzine HCl 25 mg Tablet 25 mg PO Q6H PRN (Reason: mild anxiety) Qty: 90 0RF guanfacine 1 mg Tablet Extended Release 24 Hr 1 mg PO DAILY Qty: 30 0RF venlafaxine 75 mg Capsule,Extended Release 24hr 75 mg PO DAILY Qty: 30 0RF trazodone 100 mg Tablet 100 mg PO BEDTIME Qty: 30 0RF lamotrigine [Lamictal] 25 mg tablet 50 mg PO DAILY 30 Days Qty: 60 0RF guanfacine [Intuniv ER] 1 mg tablet extended release 24 hr 1 mg PO DAILY 30 Days Qty: 30 0RF venlafaxine 75 mg capsule,extended release 24hr 75 mg PO DAILY 30 Days Qty: 30 0RF trazodone 100 mg tablet 100 mg PO BEDTIME PRN (Reason: insomnia) 30 Days Qty: 30 0RF clonidine HCl 0.1 mg tablet 0.1 mg PO Q4H PRN (Reason: moderate anxiety) 30 Days Qty: 90 0RF amoxicillin-pot clavulanate 875-125 mg tablet 1 tab PO Q12H 10 Days Qty: 20 0RF morphine 15 mg tablet extended release 15 mg PO Q8H 3 Days Qty: 9 0RF Rx Instructions: Partial Fill upon patient request. Interventions: ED Discharge Assessment Last Done: 04/24/25 19:51 Discharge Date/Time: 04/24/25 19:51 Print Language: Burundian
[2025-04-24 14:00] LABS: MANUAL DIFF FLAG NO
[2025-04-24 14:02] LABS: Hematocrit 40.1 % (37.0-47.0); Hemoglobin 13.3 g/dl (12.0-16.0); Imm Gran Abs Auto 0.03 X10*3/uL (0.00-0.03); Imm Gran Pct Auto 0.3 % (0.0-0.4); Lymphocytes Absolute Auto 0.9 X10*3/uL (1.2-4.9); Mean Corpuscular HGB Conc 33.2 g/dl (31.0-35.0); Mean Corpuscular Hemoglobin 30.2 pg (27.0-33.0); Mean Corpuscular Volume 90.9 fL (80.0-98.0); NRBC Abs Auto 0.000 X10*3/uL (0.0-0.012); NRBC Pct Auto 0.0 /100WBC (0.0-0.2); Platelet Count 262 X10*3/uL (160-400); Red Blood Count 4.41 X10*6/uL (4.20-5.50); White Blood Count 9.3 X10*3/uL (4.8-10.8)
[2025-04-24 14:16] LABS: Alanine Aminotransferase 12 U/L (0-31); Albumin Level 4.4 g/dL (3.5-5.0); Alkaline Phosphatase 62 U/L (39-117); Anion Gap 12 (12-20); Aspartate Amino Transferase 25 U/L (5-31); Blood Urea Nitrogen 10 mg/dL (9-16); Calcium 8.9 mg/dL (8.4-10.2); Carbon Dioxide 24 mmol/L (22-29); Chloride 110 mmol/L (96-108); Creatinine Clr Calc Pharmacy 134.6; Estimated Glomerular Filt Rate > 60; Potassium 3.6 mmol/L (3.3-5.1); Sodium 142 mmol/L (135-145); Total Protein 6.9 g/dL (6.5-8.0)
[2025-04-24 14:28] LABS: IDNOW Serial# 152EDE1D; Influenza B2 Negative (Negative)
[2025-04-24 14:29] LABS: COVID-19 Test Negative (Negative); IDNOW Serial# 16C4AD1C
--- OUTSIDE RECORDS SUMMARY | 2025-04-24 15:28 | XMS_ITS | Encounter Summary ---
Author Organization [facility] Address [address] [place] [phone] Phone Care Team Providers Care Discharge Coordinator Name Role Phone Berenice Parra MD Primary Care Provider [phone] Encounter Details Date Type Department Care Team (Late st Contact Info) Description 07/25/2016 Documentation [facility] [place] Family Medicine [address] [place] [address] Family Medicine, Physician [address], [place] [phone] Social History Tobacco Use Types Packs/Day Years [...] on filedocumented in this encounter Care Teams Discharge Coordinator Relationship Specialty Start Date End Date Berenice Parra MD [address] [place] [id number] PCP - General 02/21/17 09/15/19 documented as of this encounter
--- OUTSIDE RECORDS SUMMARY | 2025-04-24 15:28 | XMS_ITS | Clinical Summary ---
Author Organization [facility] Address [address] [place] [id number] Phone Care Team Providers Care Grey Percher Name Role Phone Unavailable Primary Care Provider [...] complete this topic Procedures * Due to [place] Talk[place] law, this organization might not be sharing sensitive test results. Procedure Name Priority Date/Time Associated Diagnosis Comments CHLAMYDIA AND GONORRHEA, AMPLIFIED Routine 03/19/2017 5:15 PM EDT test positive from Last 3 Months or Most Recently Relevant to Health Maintenance Results * Due to [place] law, this organization might not be sharing sensitive test results. * Chlamydia and Gonorrhea, Amplified (03/19/2017 5:15 PM EDT) Chlamydia Trachomatis, DNA Probe NEGATIVE (NEG) [facility] Comment: No Chlamydia Trachomatis RNA detected in this patient's sample (REFERENCE RANGE/NORMAL VALUE: NOT DETECTED) URINE GC AMP PROBE NEGATIVE (NEG) [facility] Comment: No Neisseria Gonorrhoeae RNA detected in this patient's sample (REFERENCE RANGE/NORMAL VALUE: NOT DETECTED) NOTE: This test uses power shovel operator-mediated amplification method to detect rRNA from [...] without risk of sexual abuse. Consult the [facility] if needed. Contact phone number . Therapeutic failure or success cannot be determined with the Aptima Combo2 assay since nucleic acid may persist following appropriate antimicrobial therapy. The Centers for Disease Control and Prevention (CDC) recommends confirmatory retesting using culture or a different nucleic acid amplification test when positive results occur, if indicated. Testing performed or reported by [facility], a Service of [facility], [facility] [place] [address] [facility] [id number] Rafael Taylor MD, PhD, [employer] Employee Urine 03/19/2017 5:15 PM EDT 03/19/2017 10:10 PM EDT us Tatiana Bustillo NP LAB MICROBIOLOGY - GENERAL ORDER LUIGI Final Result [facility] from Last 3 Months or Most Recently Relevant to Health Maintenance Insurance [facility] [address] [place] [address]
--- OUTSIDE RECORDS SUMMARY | 2025-04-24 15:29 | XMS_ITS | Encounter Summary ---
Author Organization [facility] Address [address] [place] [phone] Phone Care Team Providers Care Silver Holloware Assembler Name Role Phone Berenice Parra MD Primary Care Provider Encounter Details Date Type Department Care Team (Late st Contact Info) Description 02/27/2017 Conversion Encounter [facility] [place] [address] [place] [address] Social History Tobacco Use Types Packs/Day Years [...] on filedocumented in this encounter Care Teams [employer] Assembler Relationship Specialty Start Date End Date Berenice Parra MD [address] [place] [id number] PCP - General 02/21/17 09/15/19 documented as of this encounter
[2025-04-24 15:42] VITALS: BP 134/88; PULSE 88; RESP 19; TEMP 36.6; O2SAT 99
[2025-04-24] MEDS: oxyCODONE HCl Immed Release 5 MG TABLET PO ×2 (16:33→19:49)
--- NOTE | 2025-04-24 16:44 | PC.NURSE ---
swelling noted right side of mouth/face/upper lip. foul odor to breath.
[2025-04-24] MEDS: iohexoL 350 MG/ML 100 ML INFUS..BTL IV (16:51)
[2025-04-24 19:47] VITALS: BP 138/90; PULSE 96; RESP 20; TEMP 36.9; O2SAT 98
[2025-04-24 19:51] VITALS: BP 138/90; PULSE 96; RESP 20; TEMP 36.9; O2SAT 98
== END 2025-04-24 19:51 | disposition home or self-care (01) ==
PROVIDERS: Physician Assistant Medical; Emergency Provider Student in an Organized Health Care Education/Training Program
DX: K04.7 Periapical abscess without sinus (principal); R06.02 Shortness of breath; Z03.818 Encounter for observation for suspected exposure to other biological agents ruled out
CPT/HCPCS: 36415; 70487; 80053; 82010; 84702; 85025; 85652; 86140; 87502; 87635; 99284; 99285; Q9967

== ENCOUNTER → 2025-04-24 16:26 | Outpatient (BNV) | payer OTHER, SELFPAY | PROVIDERS: Emergency Provider Student in an Organized Health Care Education/Training Program; Visit Provider Nuclear Medicine | DX: K04.7 Periapical abscess without sinus (principal) | CPT/HCPCS: 70487 ==